=== PATIENT | male | born 1960 | race Caucasian/White ===

== ENCOUNTER 2018-08-31 07:30 | Inpatient (IN) | payer BC ==
--- NOTE | 2018-08-18 19:24 | HP ---
HISTORY AND PHYSICAL: DATE OF ADMISSION/SURGERY: 08/31/18 DATE OF OFFICE VISIT: 08/18/18 SURGEON: Radha Lebron MD * (DICTATED BY ANDREA FU) PROCEDURE: Left total hip arthroplasty. CHIEF COMPLAINT: Left hip pain. HISTORY OF PRESENT ILLNESS: Mr. Vazquez is a 58-year-old gentleman with end- stage osteoarthritis of the left hip. He has failed conservative treatment and elected to proceed with a left total hip arthroplasty. PAST MEDICAL HISTORY: Hypertension, high cholesterol, and sleep apnea. PAST SURGICAL HISTORY: Prostate biopsies and colonoscopies. CURRENT MEDICATIONS: 1. Omeprazole 40 mg a day. 2. Valsartan/hydrochlorothiazide 320/12.5 mg a day. 3. Aspirin 81 mg daily. 4. Cinnamon. 5. Magnesium. 6. Psyllium husk. 7. Turmeric. 8. Vitamin D3. 9. Inflamma-K. 10. ProbioMax. 11. CoQ10. 12. Garlic. ALLERGIES: None. FAMILY HISTORY: Coronary artery disease and cancer. SOCIAL HISTORY: He is a 58-year-old gentleman, lives with his . He does not smoke or use drugs. Uses occasional alcohol. REVIEW OF SYSTEMS: A complete 14-point review of systems was reviewed with the patient. It was positive for GERD. He denies history of DVT, PE, hepatitis, HIV , or anesthesia problems. PHYSICAL EXAMINATION GENERAL: He is well developed, well nourished, in no acute distress. VITAL SIGNS: He stands 70 inches tall, weighs 210 pounds. His blood pressure is 114/76 and his heart rate is 72. HEENT: Normocephalic, atraumatic. NECK: Supple. No palpable lymph nodes. PULMONARY: The lungs are clear to auscultation bilaterally. CARDIO: Regular rate and rhythm. Strong S1, S2. ABDOMEN: Soft, nontender, nondistended. NEUROLOGICAL: He is alert and oriented x3. MUSCULOSKELETAL: Left lower extremity: The skin is intact. There are no open wounds or abrasions. He walks with an antalgic-type gait favoring his left hip. He has decreased internal and external rotation of the left hip. He has a 2+ dorsalis pedis pulse. Intact sensation. His lower extremity muscle group strengths are intact at 5/5. ASSESSMENT AND PLAN: Mr. Vazquez is a 58-year-old gentleman with end-stage osteoarthritis of the left hip. He has failed conservative treatment and elected to proceed with a left total hip arthroplasty. Surgery is scheduled for 08/31/[address] Lebron discussed the risks and benefits of the surgery at today's visit and all of his questions were answered. He will follow up with Dr. Lebron 2 weeks after the surgery. ANDREA FU [id number]/[facility] #: [id number] MTDLeonard
[~2018-08-31 07:30] MED LIST: Buffered Lidocaine 1% SYRIN* 1 ML/SYRINGE INTRADERM ONE; Dexamethasone TAB* 4 MG PO ONE; DiMENhydriNATE IV* 50 MG/ML VIAL IV PUSH PRN; Famotidine IV* 10 MG/ML 2 ML (20 mg) IV ONE; Morphine VIAL* 4 MG/ML VIAL (1 ml vial) IV PRN; Naloxone* 0.4 MG/ML 1 ML VIAL IV PRN; Ondansetron TAB* 4 MG PO ONE; PROCHLORPERAZINE INJ 5 MG/ML 2 ML VIAL IV PRN; oxyCODONE/Acetamin 5/325 MG* TAB PO PRN
[2018-08-31] MEDS ORDERED: Gabapentin CAP(*) 300 MG PO ONE (09:00)
--- OUTSIDE RECORDS SUMMARY | 2018-08-31 09:10 | XMS REPORT | Continuity of Care Document ---
:1960 External Reference #:[id number] Author Name Shanthi Mello Care Team Providers Name Role Phone Nicolas Johnson DO Primary Care Physician Unavailable Payers Date Identification Numbers Payment Provider Subscriber Policy Number: [id number] [employer] Callum Vazquez PayID: [id number] [address] [address] [place] [address] Advance Directives Description No Information Available Problems Date Description Provider Status Onset: 07/12/2018 Localized, primary osteoarthritis of the Radha Pravin Lebron Active pelvic region and thigh Family History Description No Information Available Social History Type Date Description Comments Sex Unknown Lives With Spouse Occupation regional owner operator truck driver ETOH Use Currently consumes alcohol Tobacco Use Start: Unknown End: Patient is a former smoker Unknown Smoking Status Reviewed: 08/18/18 Patient is a former smoker Exercise Type/Frequency Exercises regularly Allergies, Adverse Reactions, Alerts Description No Known Drug Allergies Medications Medication Date Status Form Strength Qnty SIG Indications Ordering Provider Esomeprazole Active Capsules 40mg Johnson, Magnesium 000 DR Nicolas DO Valsartan-[place] Active Tablets 320-12.5mg Johnson, chlorothiazide 000 DO Nicolas Aspirin 81 Low Active Chewtabs 81mg 1 by Unknown Dose 000 mouth every day Cinnamon Active Capsules 500mg 2 tabs by Unknown 000 mouth every day Magnesium Active Capsules 100mg 1 by Unknown 000 mouth every day Psyllium Husk Active Powder 100% Unknown 000 Tumric Active tumeric Unknown 000 daily Vitamin D3 Active Liquid 1200Unit/1 Unknown 000 5ML Inflamma-K Active Kit 1.5&3.1-6- Unknown 000 10% Probiomax Daily Active Capsules Unknown DF 000 Co Q-10 Active Capsules 100mg Unknown 000 Garlic Active Tablets 100mg 1 by Unknown 000 mouth every day Immunizations Description No Information Available Vital Signs Date Vital Result Comment 08/18/2018 1:22pm Height 70.5 inches 5'10.50" Weight 210.00 lb BP Systolic 119 mmHg BP Diastolic 76 mmHg Respiratory Rate 16 /min Pain Level 6 BMI (Body Mass Index) 29.7 kg/m2 07/24/2018 3:03pm Height 70.5 inches 5'10.50" Heart Rate 75 /min BP Systolic 140 mmHg BP Diastolic 80 mmHg Respiratory Rate 18 /min Body Temperature 97.8 F Pain Level 7 07/12/2018 11:44am Height 70.5 inches 5'10.50" Weight 208.00 lb BP Systolic 129 mmHg BP Diastolic 82 mmHg Respiratory Rate 18 /min Pain Level 8 BMI (Body Mass Index) 29.4 kg/m2 Results Description No Information Available Procedures Description No Information Available Encounters Type Date Location Provider Dx Diagnosis Office Visit 07/24/2018 [facility] Lebron M25.562 Pain in left knee 2:[facility] M25.552 Pain in left hip M16.12 Unilateral primary osteoarthritis, left hip Office Visit 07/12/2018 10:45a [facility] Radha Lebron M25.562 Pain in left Of [facility] knee M25.552 Pain in left hip M16.12 Unilateral primary osteoarthritis, left hip Plan of Treatment Future Appointment(s):09/11/2018 8:45 am - Radha Lebron M.D. at [facility].A.08/31/2018 10:00 am - LEISA Santoro at [facility].A.08/31/2018 10:00 am - ANDREA Tan at [facility].A.08/31/2018 10:00 am - Radha Lebron M.D. at [facility].A.08/18/2018 - Radha Lebron M.D.M25.552 Pain in left hipFollow up:Follow up: 2 weeks after idxueunM38.12 Unilateral primary osteoarthritis, left hip
--- OUTSIDE RECORDS SUMMARY | 2018-08-31 09:10 | XMS REPORT | Continuity of Care Document ---
:1960 External Reference #:[id number] Author Name Nelia Brothers PA Address [address] [place] [address] Care Team Providers Name Role Phone Nicolas Johnson DO Care Team Information [employer] Unavailable Payers Type Date Identification Numbers Payment Provider Subscriber Effective: Policy Number: [id number] [facility] Commercial Callum Vazquez 2014 PayID: [id number] [address] [address] [place] [address] Advance Directives Description No Information Available Problems Date Description Provider Status Onset: 12/21/2013 Vitamin D deficiency Ar Plasencia DO Active Onset: 12/06/2011 Obstructive sleep apnea syndrome Ar Plasencia DO Active Onset: 12/06/2011 Pure hyperglyceridemia Ar Plasencia DO Active Onset: 12/06/2011 Gastroesophageal reflux disease Ar Plasencia DO Active Onset: 12/06/2011 Benign essential hypertension Ar Plasencia DO Active Onset: 07/19/2014 Pure hypercholesterolemia Ar Plasencia DO Active Onset: 07/19/2014 Sleep apnea Ar Plasencia DO Active Onset: 02/19/2016 Family history of malignant neoplasm of Ar Plasencia DO Active gastrointestinal tract Family History Description No Information Available Social History Type Date Description Comments Sex Unknown Marital Status 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 Dx: g47.33 Valsartan-Hydr 04/15/ Active Tablets 320-12.5mg 90tabs Take 1 I10 Alex ochlorothiazid 2014 Tablet Nicolas, e Daily DO Aspirin Adult 12/05/ Active Tablets 81mg 1 po qd I10 Luis Angel, Low Strength 2011 DO Ar Esomeprazole 12/05/ Active Capsules 40mg 90caps Take 1 K21.9 Alex Magnesium 2011 Capsule Nicolas, Daily DO Co-Enzyme Q-10 / Active Capsules 120mg 2 tabs Unknown 0000 oncea day Cinnamon / Active Capsules 500mg 2 by mouth Unknown 0000 every day Vitamin D / Active Capsules [id number] take 1 E55.9 Unknown (Ergocalcifero 0000 capsule by l) mouth every week on Tuesday Magnesium / Active Tablets 500mg 1 by mouth Unknown 0000 every other day Garlic / Active Capsules 500mg 1 cap po Unknown 0000 daily Tumeric 00/ Active 1 po daily Unknown 0000 Probiotic / Active Capsules 1 by mouth Unknown 0000 every day Rosuvastatin 02/21/ Hx Tablets 5mg 90tabs 1 by mouth E78.00 Luis Angel, Calcium 2016 - every day Ar, 2016 Atorvastatin 07/19/ Hx Tablets 40mg 90tabs Take 1 E78.00 Luis Angel, Calcium 2014 - Tablet Ar, 02/21/ Daily DO 2016 Naproxen 08/15/ Hx Tablets 550mg 60tabs Take 1 Luis Angel, Sodium 2013 - Tablet By Ar, 07/19/ Mouth DO 2014 Twice A Day With Food Glucosamine 06/22/ Hx Capsules 1500Com 2 po qd Luis Angel, Chondroitin 2012 - Tori Joyner Complex 2017 Fenofibric 12/15/ Hx Capsules 135mg 90caps 1 po qd Luis Angel, Acid 2012 - DR Joyner, 2014 [facility] Vitamin D 06/19/ Hx Capsules 2000Unit 100cap 1 po q E55.9 Luis Angel, 2011 - s week Ar, 2016 Diovan HCT 12/05/ Hx Tablets 320-12.5 90Tabs 1 by mouth Digiovanna 2011 - every day , Collin, 2014 Milk Thistle 12/05/ Hx Capsules 150mg 1PO qd Luis Angel, 2011 - Ar, 2016 Vitamin C / Hx Capsules 500mg 120cap 1 by mouth Unknown 0000 - s every day 2016 Tumeric / Hx 2000mg 1 tab Unknown 0000 - daily 2017 Arianna / Hx Capsules 500mg 1 tab Unknown 0000 - daily 2016 Arianna / Hx Capsules 3000mg 1 by mouth Unknown 0000 - every day 2017 Fiber Complete / Hx Tablets 1 by mouth Unknown 0000 - every day 2017 Feverfew / Hx Capsules 380mg 2 po daily Unknown 0000 - 2017 Medications Administered in Office Medication Date Status Form Strength Qnty SIG Indications Ordering Provider Depo Medrol 80 Administered Injection Luis Angel, MG 016 DO Ar Immunizations CPT Code Status Date Vaccine Lot # [id number] Given 08/01/2018 Tdap (Adacel) Ages 7 And Above Only [id number] Vital Signs Date Vital Result Comment 08/01/2018 10:10am Weight 211.00 lb Heart Rate 73 /min BP Systolic 130 mmHg BP Diastolic 82 mmHg Respiratory Rate 16 /min Height 69.75 inches 5'9.75" (08/2017) O2 % BldC Oximetry 94 % Ra BMI (Body Mass Index) 30.5 kg/m2 03/03/2018 8:08am Weight 206.00 lb Heart Rate 80 /min BP Systolic 116 mmHg BP Diastolic 78 mmHg Respiratory Rate 16 /min Height 69.75 inches 5'9.75" (08/2017) BMI (Body Mass Index) 29.8 kg/m2 08/26/2017 2:11pm Weight 206.00 lb Heart Rate 64 /min BP Systolic 136 mmHg BP Diastolic 88 mmHg Respiratory Rate 17 /min Height 69.75 inches 5'9.75" (08/2017) BMI (Body Mass Index) 29.8 kg/m2 04/29/2017 8:12am Weight 216.00 lb Heart Rate 68 /min BP Systolic 150 mmHg BP Diastolic 80 mmHg Respiratory Rate 18 /min Height 69.75 inches 5'9.75" (08/23/16) BMI (Body Mass Index) 31.2 kg/m2 02/21/2017 1:11pm Weight 215.56 lb Heart Rate 80 /min 80 Reg BP Systolic 124 mmHg BP Diastolic 80 mmHg BP Systolic Recheck 124 mmHg BP Diastolic Recheck 80 mmHg Respiratory Rate 16 /min Height 69.75 inches 5'9.75" (08/23/16) BMI (Body Mass Index) 31.1 kg/m2 11/09/2016 3:56pm Body Temperature 97.9 F Weight 216.50 lb Heart Rate 76 /min BP Systolic 126 mmHg BP Diastolic 80 mmHg Respiratory Rate 16 /min Height 69.75 inches 5'9.75" (08/23/16) BMI (Body Mass Index) 31.3 kg/m2 08/23/2016 1:12pm Weight 216.00 lb Heart Rate 72 /min 72 Reg BP Systolic 130 mmHg BP Diastolic 82 mmHg BP Systolic Recheck 116 mmHg BP Diastolic Recheck 74 mmHg Respiratory Rate 18 /min Height 69.75 inches 5'9.75" (08/23/16) BMI (Body Mass Index) 31.2 kg/m2 02/19/2016 1:00pm Weight 218.00 lb Heart Rate 72 /min 72 Reg BP Systolic 140 mmHg BP Diastolic 80 mmHg BP Systolic Recheck 130 mmHg BP Diastolic Recheck 80 mmHg Respiratory Rate 18 /min Height 70.25 inches 5'10.25" BMI (Body Mass Index) 31.1 kg/m2 08/14/2015 1:09pm Weight 220.00 lb Heart Rate 72 /min 72 Reg BP Systolic 152 mmHg BP Diastolic 82 mmHg BP Systolic Recheck 130 mmHg BP Diastolic Recheck 80 mmHg Respiratory Rate 18 /min Height 70.25 inches 5'10.25" BMI (Body Mass Index) 31.3 kg/m2 02/04/2015 1:52pm Weight 224.00 lb Heart Rate 66 /min 72 Reg BP Systolic 152 mmHg BP Diastolic 98 mmHg BP Systolic Recheck 150 mmHg Both Arms BP Diastolic Recheck 96 mmHg Both Arms Respiratory Rate 18 /min Height 70.25 inches 5'10.25" BMI (Body Mass Index) 31.9 kg/m2 07/19/2014 8:31am Weight 234.00 lb Heart Rate 72 /min 64 Reg BP Systolic 140 mmHg BP Diastolic 80 mmHg BP Systolic Recheck 140 mmHg BP Diastolic Recheck 90 mmHg Respiratory Rate 18 /min Height 70.25 inches 5'10.25" BMI (Body Mass Index) 33.3 kg/m2 12/21/2013 3:15pm BP Systolic 120 mmHg BP Diastolic 76 mmHg 12/21/2013 3:15pm Weight 221.00 lb Heart Rate 72 /min 72 Reg BP Systolic 118 mmHg BP Diastolic 72 mmHg Respiratory Rate 18 /min Height 70.25 inches 5'10.25" 09/28/2013 1:16pm Weight 235.00 lb Heart Rate 72 /min BP Systolic 140 mmHg BP Diastolic 88 mmHg Respiratory Rate 18 /min 08/15/2013 9:05am Weight 229.00 lb Heart Rate 72 /min Reg BP Systolic 130 mmHg BP Diastolic 80 mmHg 06/22/2013 3:10pm BP Systolic 124 mmHg BP Diastolic 80 mmHg 06/22/2013 3:10pm Weight 234.00 lb Heart Rate 84 /min 80 Reg BP Systolic 124 mmHg BP Diastolic 80 mmHg Respiratory Rate 18 /min 12/15/2012 3:03pm BP Systolic 110 mmHg BP Diastolic 74 mmHg 12/15/2012 3:03pm Weight 222.00 lb Heart Rate 60 /min 72 Reg BP Systolic 140 mmHg BP Diastolic 80 mmHg Respiratory Rate 18 /min 06/19/2012 2:44pm BP Systolic 130 mmHg BP Diastolic 80 mmHg 06/19/2012 2:44pm Weight 234.00 lb Heart Rate 66 /min 72 Reg BP Systolic 136 mmHg BP Diastolic 80 mmHg Respiratory Rate 18 /min 12/06/2011 8:57am BP Systolic 110 mmHg BP Diastolic 74 mmHg 12/06/2011 8:57am Weight 228.00 lb Heart Rate 72 /min BP Systolic 120 mmHg BP Diastolic 80 mmHg Respiratory Rate 24 /min Height 70.25 inches 5'10.25" Results Test Date Facility Test Result H/L Range Note CBC With Auto Diff 02/23/2018 [facility] W[facility] 5.8 K/uL 4.1-11.0 RBC 4.72 M/uL 4.60-6.10 Hemoglobin 15.5 gm/dL 13.5-18.0 Hematocrit 44.5 % 41.0-53.0 MCV 94.3 fL 80.0-97.0 MCH 32.8 pg High 27.0-32.0 MCHC 34.8 g/dL 32.0-36.0 RDW 12.8 % 11.5-14.5 PLT Count 175 K/ul 140-400 MPV 7.3 FL 7.1-10.7 Neutrophil 68.3 % 35.0-75.0 Lymphocyte 16.9 % 16.0-52.0 Monocyte 10.4 % High 2.0-10.0 Eosinophil 3.4 % 0.0-5.0 Basophil 1.0 % 0.0-4.0 Abs Neutrophils 4.0 K/uL 2.1-8.0 Abs Lymphocytes 1.0 K/uL 0.8-5.5 Abs Monocytes 0.6 K/uL 0.1-1.0 Abs Eosinophils 0.2 K/uL 0.0-0.5 Abs Basophils 0.1 K/uL 0.0-0.3 Basic (BMP) 02/23/2018 [facility] Sodium 142 mmol/L 135-146 1 Potassium 4.3 mmol/L 3.5-5.2 Chloride# 103 mmol/L 97-110 2 Carbon Dioxide 29 mmol/L 24-34 Glucose 107 mg/dL High 70-105 BUN 15 mg/dL 6-26 Creatinine 0.9 mg/dL 0.5-1.4 Calcium 9.8 mg/dL 8.5-10.2 Non Deidre Egfr >60 >60 3 Deidre Egfr >60 >60 4 Anion Gap 10 mmol/L 5-15 5 Laboratory test finding [facility]2018 [facility] TSH 1.84 uIU/mL 0.35-4.94 Lipid Treatment 02/23/2018 [facility] Cholesterol 218 mg/dL High 50-199 Triglycerides 117 mg/dL 30-200 HDL 48 mg/dL 29-71 6 Chol/ HDL Ratio 4.5 ratio 4.0-6.7 VLDL 23 mg/dL 2-29 LDL (Calc) 146 mg/dL High 20-99 7 Alt 17 U/L 3-42 Ast 14 U/L 8-42 Laboratory test finding 02/23/2018 [facility] Vitamin D 25 Hydroxy 64 ng/mL 30-100 8 Magnesium 2.0 mg/dL 1.5-2.7 Hemoglobin A1c 02/23/2018 [facility] Hemoglobin A1c 5.1 % 4.1-5.9 Estimated Average Glucose Calc 100 mg/dL 71-140 PSA Total And Free -RL 08/19/2017 [facility] PSA Total 0.8 ng/mL (0.0-4.0) 9 PSA Free 0.1 ng/mL PSA % Free 13 % 10 CBC With Auto Diff 08/19/2017 [facility] WBC 4.6 K/uL 4.1-11.0 11 RBC 4.49 M/uL Low 4.60-6.10 Hemoglobin 14.4 gm/dL 13.5-18.0 Hematocrit 40.8 % Low 41.0-53.0 MCV 90.9 fL 80.0-97.0 MCH 32.0 pg 27.0-32.0 MCHC 35.3 g/dL 32.0-36.0 RDW 13.2 % 11.5-14.5 PLT Count 174 K/ul 140-400 MPV 7.4 FL 7.1-10.7 Neutrophil 66.0 % 35.0-75.0 Lymphocyte 22.1 % 16.0-52.0 Monocyte 8.8 % 2.0-10.0 Eosinophil 2.6 % 0.0-5.0 Basophil 0.5 % 0.0-4.0 Abs Neutrophils 3.1 K/uL 2.1-8.0 Abs Lymphocytes 1.0 K/uL 0.8-5.5 Abs Monocytes 0.4 K/uL 0.1-1.0 Abs Eosinophils 0.1 K/uL 0.0-0.5 Abs Basophils 0.0 K/uL 0.0-0.3 Basic (BMP) 08/19/2017 [facility] Sodium 142 mmol/L 135-146 12 Potassium 3.9 mmol/L 3.5-5.2 Chloride# 104 mmol/L 97-110 13 Carbon Dioxide 30 mmol/L 24-34 Glucose 113 mg/dL High 70-105 BUN 18 mg/dL 6-26 Creatinine 0.9 mg/dL 0.5-1.4 Calcium 9.8 mg/dL 8.5-10.2 Non Deidre Egfr >60 >60 14 Deidre Egfr >60 >60 15 Anion Gap 8 mmol/L 5-15 16 Lipid Treatment 08/19/2017 [facility] Cholesterol 198 mg/dL 50-199 Triglycerides 122 mg/dL 30-200 HDL 44 mg/dL 29-71 17 Chol/ HDL Ratio 4.5 ratio 4.0-6.7 VLDL 24 mg/dL 2-29 LDL (Calc) 130 mg/dL High 20-99 18 Alt 35 U/L 3-42 Ast 15 U/L 8-42 Laboratory test finding 08/19/2017 [facility] Vitamin D 25 Hydroxy 28 ng/mL Low 30-100 19 Magnesium 2.1 mg/dL 1.5-2.7 Hemoglobin A1c 08/19/2017 [facility] Hemoglobin A1c 5.2 % 4.1-5.9 Estimated Average Glucose Calc 103 mg/dL 71-140 Laboratory test finding 04/29/2017 [facility] Esr 3 mm/hr 0-15 20 CRP (C-Reactive) 0.03 mg/dL 0.00-0.75 Rheumatoid Factor <10.0 IU/mL 0.0-10.0 Yoly Screen With Reflex-FCMG 04/29/2017 [facility] Yoly Screen NEGATIVE dsDNA IgG 3.50 0.00-9.00 21 Laboratory test finding 04/29/2017 [facility] Ferritin 94.7 ng/ml 24.0- 336.0 Iron, Total 127 g/dL 65-175 Uric Acid 6.1 mg/dL 2.6-8.4 CBC With Auto Diff 02/14/2017 [facility] WBC 5.2 K/uL 4.1-11.0 22 RBC 4.78 M/uL 4.60-6.10 Hemoglobin 15.4 gm/dL 13.5-18.0 Hematocrit 43.9 % 41.0-53.0 MCV 91.9 fL 80.0-97.0 MCH 32.2 pg High 27.0-32.0 MCHC 35.1 g/dL 32.0-36.0 RDW 13.7 % 11.5-14.5 PLT Count 180 K/ul 140-400 Neutrophil 63.2 % 35.0-75.0 Lymphocyte 24.3 % 16.0-52.0 Monocyte 9.0 % 2.0-10.0 Eosinophil 2.9 % 0.0-5.0 Basophil 0.6 % 0.0-4.0 Abs Neutrophils 3.3 K/uL 2.1-8.0 Abs Lymphocytes 1.3 K/uL 0.8-5.5 Abs Monocytes 0.5 K/uL 0.1-1.0 Abs Eosinophils 0.1 K/uL 0.0-0.5 Abs Basophils 0.0 K/uL 0.0-0.3 Basic (BMP) 02/14/2017 [facility] Sodium 142 mmol/L 135-146 23 Potassium 4.2 mmol/L 3.5-5.2 Chloride# 106 mmol/L 97-110 24 Carbon Dioxide 24 mmol/L 24-34 Glucose 105 mg/dL 70-105 BUN 17 mg/dL 6-26 Creatinine 0.8 mg/dL 0.5-1.4 Calcium 9.6 mg/dL 8.5-10.2 Non Deidre Egfr >60 >60 25 Deidre Egfr >60 >60 26 Anion Gap 12 mmol/L 7-16 27 Lipid Treatment 02/14/2017 [facility] Cholesterol 235 mg/dL High 50-199 Triglycerides 230 mg/dL High 30-150 HDL 54 mg/dL 40-71 28 Chol/ HDL Ratio 4.4 ratio 4.0-6.7 VLDL 46 mg/dL High 2-29 LDL (Calc) 135 mg/dL High 20-129 29 Alt 17 U/L 3-42 Ast 14 U/L 8-42 Laboratory test finding 02/14/2017 [facility] Vit D25oh 40 ng/mL 31-100 Magnesium 2.1 mg/dL 1.5-2.7 Hemoglobin A1c 02/14/2017 [facility] Hemoglobin A1c 5.5 % 4.1-6.5 Estimated Average Glucose Calc 111 71-140 Laboratory test finding 11/10/2016 [facility] CPK 90 U/L 12-199 30 Esr 2 mm/hr 0-15 CRP (C-Reactive) 0.03 mg/dL 0.00-0.75 Rheumatoid Factor <10.0 IU/mL 0.0-10.0 Yoly Screen With Reflex-FCMG 11/10/2016 [facility] Yoly Screen NEGATIVE dsDNA IgG NEGATIVE CBC With Auto Diff 11/10/2016 [facility] WBC 5.9 K/uL 4.1-11.0 RBC 4.78 M/uL 4.60-6.10 Hemoglobin 14.6 gm/dL 13.5-18.0 Hematocrit 44.1 % 41.0-53.0 MCV 92.4 fL 80.0-97.0 MCH 30.6 pg 27.0-32.0 MCHC 33.2 g/dL 32.0-36.0 RDW 13.0 % 11.5-14.5 PLT Count 183 K/ul 140-400 Neutrophil 64.8 % 35.0-75.0 Lymphocyte 22.9 % 16.0-52.0 Monocyte 8.1 % 2.0-10.0 Eosinophil 3.6 % 0.0-5.0 Basophil 0.6 % 0.0-4.0 Abs Neutrophils 3.8 K/uL 2.1-8.0 Abs Lymphocytes 1.4 K/uL 0.8-5.5 Abs Monocytes 0.5 K/uL 0.1-1.0 Abs Eosinophils 0.2 K/uL 0.0-0.5 Abs Basophils 0.0 K/uL 0.0-0.3 Lyme Igm/Igg AB -RL 11/10/2016 [facility] Lyme Igm/Igg AB @ NEGATIVE (Neg) 31 CBC With Auto Diff 08/17/2016 [facility] WBC 7.2 K/uL 4.1-11.0 32 RBC 4.79 M/uL 4.60-6.10 Hemoglobin 15.1 gm/dL 13.5-18.0 Hematocrit 43.3 % 41.0-53.0 MCV 90.3 fL 80.0-97.0 MCH 31.5 pg 27.0-32.0 MCHC 34.9 g/dL 32.0-36.0 RDW 12.7 % 11.5-14.5 PLT Count 190 K/ul 140-400 Neutrophil 71.3 % 35.0-75.0 Lymphocyte 16.6 % 16.0-52.0 Monocyte 7.3 % 2.0-10.0 Eosinophil 4.0 % 0.0-5.0 Basophil 0.8 % 0.0-4.0 Abs Neutrophils 5.2 K/uL 2.1-8.0 Abs Lymphocytes 1.2 K/uL 0.8-5.5 Abs Monocytes 0.5 K/uL 0.1-1.0 Abs Eosinophils 0.3 K/uL 0.0-0.5 Abs Basophils 0.1 K/uL 0.0-0.3 Basic (BMP) 08/17/2016 [facility] Sodium 140 mmol/L 134-142 Potassium 4.2 mmol/L 3.5-5.2 Chloride 105 mmol/L 97-109 Carbon Dioxide 25 mmol/L 24- Glucose 114 mg/dL High 70-105 BUN 17 mg/dL 6- Creatinine 0.8 mg/dL 0.5-1.4 Calcium 10.0 mg/dL 8.5-10.2 Anion Gap 14 mmol/L - Non Deidre Egfr >60 >60 33 Deidre Egfr >60 >60 34 Lipid Treatment 08/17/2016 [facility] Cholesterol 152 mg/dL 50-199 Triglycerides 90 mg/dL 30-150 HDL 54 mg/dL 40-71 35 Chol/ HDL Ratio 2.8 ratio Low 4.0-6.7 VLDL 18 mg/dL 2-29 LDL (Calc) 80 mg/dL 20-99 36 Alt 21 U/L 3-42 Ast 14 U/L 8-42 Laboratory test finding 08/17/2016 [facility] Vit D,25 Hydroxy 41 ng/mL 31- 100 Magnesium 2.0 mg/dL 1.5-2.7 Laboratory test finding 07/30/2016 [facility] BUN 17 mg/ dL N 7-18 37 (315)- - Creatinine 0.9 mg/dL N 0.6-1.3 Lyme Igm/Igg AB -RL 06/02/2016 [facility] Lyme Igm/Igg AB @ NEGATIVE (Neg) 38, 39 CBC With Auto Diff 02/12/2016 [facility] WBC 4.5 K/uL 4.1-11.0 40 RBC 4.74 M/uL 4.60-6.10 Hemoglobin 15.2 gm/dL 13.5-18.0 Hematocrit 43.2 % 41.0-53.0 MCV 91.1 fL 80.0-97.0 MCH 32.0 pg 27.0-32.0 MCHC 35.2 g/dL 32.0-36.0 RDW 12.8 % 11.5-14.5 PLT Count 177 K/ul 140-400 Neutrophil 58.8 % 35.0-75.0 Lymphocyte 28.4 % 16.0-52.0 Monocyte 7.9 % 2.0-10.0 Eosinophil 4.3 % 0.0-5.0 Basophil 0.6 % 0.0-4.0 Abs Neutrophils 2.7 K/uL 2.1-8.0 Abs Lymphocytes 1.3 K/uL 0.8-5.5 Abs Monocytes 0.4 K/uL 0.1-1.0 Abs Eosinophils 0.2 K/uL 0.0-0.5 Abs Basophils 0.0 K/uL 0.0-0.3 Basic (BMP) 02/12/2016 [facility] Sodium 140 mmol/L 134-142 Potassium 4.1 mmol/L 3.5-5.2 Chloride 105 mmol/L 97-109 Carbon Dioxide 25 mmol/L 24-34 Glucose 97 mg/dL 70-105 BUN 17 mg/dL 6-26 Creatinine 0.9 mg/dL 0.5-1.4 Calcium 9.7 mg/dL 8.5-10.2 Anion Gap 14 mmol/L 6-14 Non Deidre Egfr >60 >60 41 Deidre Egfr >60 >60 42 Lipid Treatment 02/12/2016 [facility] Cholesterol 179 mg/dL 50-199 Triglycerides 249 mg/dL High 30-150 HDL 47 mg/dL 40-71 43 Chol/ HDL Ratio 3.8 ratio Low 4.0-6.7 VLDL 50 mg/dL High 2-29 LDL (Calc) 82 mg/dL 20-99 44 Alt 20 U/L 3-42 Ast 14 U/L 8-42 Laboratory test finding 02/12/2016 [facility] Vit D,25 Hydroxy 35 ng/mL 31- 100 Magnesium 2.0 mg/dL 1.5-2.7 Basic (BMP) 08/07/2015 [facility] Sodium 140 mmol/L 134-142 45 Potassium 4.6 mmol/L 3.5-5.2 Chloride 103 mmol/L 97-109 Carbon Dioxide 29 mmol/L 24-34 Glucose 100 mg/dL 70-105 BUN 17 mg/dL 6-26 Creatinine 0.9 mg/dL 0.5-1.4 Calcium 9.7 mg/dL 8.5-10.2 Anion Gap 13 mmol/L 6-14 Non Deidre Egfr >60 >60 46 Deidre Egfr >60 >60 47 CBC With Auto Diff 08/07/2015 [facility] WBC 6.2 K/uL 4.1-11.0 RBC 4.72 M/uL 4.60-6.10 Hemoglobin 14.8 gm/dL 13.5-18.0 Hematocrit 43.4 % 41.0-53.0 MCV 92.0 fL 80.0-97.0 MCH 31.5 pg 27.0-32.0 MCHC 34.2 g/dL 32.0-36.0 RDW 12.9 % 11.5-14.5 PLT Count 188 K/ul 140-400 Neutrophil 63.5 % 35.0-75.0 Lymphocyte 23.4 % 16.0-52.0 Monocyte 9.0 % 2.0-10.0 Eosinophil 3.5 % 0.0-5.0 Basophil 0.6 % 0.0-4.0 Abs Neutrophils 4.0 K/uL 2.1-8.0 Abs Lymphocytes 1.5 K/uL 0.8-5.5 Abmon 0.6 K/uL 0.1-1.0 Abs Eosinophils 0.2 K/uL 0.0-0.5 Abs Basophils 0.0 K/uL 0.0-0.3 Lipid Treatment 08/07/2015 [facility] Cholesterol 160 mg/dL 50-199 Triglycerides 210 mg/dL High 30-150 HDL 46 mg/dL 40-71 48 Chol/ HDL Ratio 3.5 ratio Low 4.0-6.7 VLDL 42 mg/dL High 2-29 LDL (Calc) 72 mg/dL 20-99 49 Alt 22 U/L 3-42 Ast 15 U/L 8-42 Laboratory test finding 08/07/2015 [facility] Vit D,25 Hydroxy 73 ng/mL 31- 100 Basic (BMP) 01/09/2015 [facility] Sodium 140 mmol/L 134-142 50 Potassium 4.6 mmol/L 3.5-5.2 Chloride 106 mmol/L 97-109 Carbon Dioxide 26 mmol/L 24-34 Glucose 109 mg/dL High 70-105 BUN 14 mg/dL 6-26 Creatinine 0.9 mg/dL 0.5-1.4 Calcium 9.6 mg/dL 8.5-10.2 Anion Gap 13 mmol/L 6-14 Non Deidre Egfr >60 >60 51 Deidre Egfr >60 >60 52 CBC With Auto Diff 01/09/2015 [facility] WBC 5.8 K/uL 4.1-11.0 RBC 5.03 M/uL 4.60-6.10 Hemoglobin 16.5 gm/dL 13.5-18.0 Hematocrit 47.3 % 41.0-53.0 MCV 94.0 fL 80.0-97.0 MCH 32.7 pg High 27.0-32.0 MCHC 34.8 g/dL 32.0-36.0 RDW 13.1 % 11.5-14.5 PLT Count Platelets clumpe <SEE NOTE> K/ul 140-400 53 Neutrophil 61.3 % 35.0-75.0 Lymphocyte 24.5 % 16.0-52.0 Monocyte 7.9 % 2.0-10.0 Eosinophil 5.7 % High 0.0-5.0 Basophil 0.6 % 0.0-4.0 Abs Neutrophils 3.5 K/uL 2.1-8.0 Abs Lymphocytes 1.4 K/uL 0.8-5.5 Abmon 0.5 K/uL 0.1-1.0 Abs Eosinophils 0.3 K/uL 0.0-0.5 Abs Basophils 0.0 K/uL 0.0-0.3 Laboratory test finding 01/09/2015 [facility] Vit D,25 Hydroxy 52 ng/mL 31- 100 Lipid Treatment 01/09/2015 [facility] Cholesterol 241 mg/dL High 50-199 Triglycerides 160 mg/dL High 30-150 HDL 51 mg/dL 40-71 54 Chol/ HDL Ratio 4.7 ratio 4.0-6.7 VLDL 32 mg/dL High 2-29 LDL (Calc) 158 mg/dL High 20-129 55 Alt 21 U/L 3-42 Ast 20 U/L 8-42 Lipid Panel 06/17/2014 [facility] Chol/HDL Ratio 4.6 ratio Cholesterol 226.0 mg/dL High 50.0-199.0 HDL 49.0 mg/dL 40.0-67.0 LDL, Calculated 141.8 mg/dL High 20.0-129.0 Triglycerides 176.0 mg/dL High 30.0-150.0 vLDL 35.2 ng/dL Laboratory test finding 06/17/2014 N2N/[facility] Import % Baso. 0.8 % 0.0-2.0 % Eos. 4.2 % High 0.0-4.0 % Lymph 24 % 20-44 % Ceiba 8.4 % 2.0-10.0 % Mary 63 % 50-70 Absolute Baso. 0.0 K/ul 0.0-0.3 Absolute Eos. 0.2 K/ul 0.0-0.5 Absolute Lymph. 1.3 K/ul 0.8-4.8 Absolute Ceiba. 0.4 K/ul 0.1-1.0 Absolute Mary. 3.34 K/ul 2.05-7.63 Alt 24.0 U/L 21.0-72.0 Ast 20.0 U/L 17.0-59.0 BUN 18.0 mg/dL 9.0-21.0 BUN/Creat Ratio 18.0 ratio 12.0-20.0 Calcium 10.0 mg/dL 8.7-10.5 Chloride 106.0 mmol/L 98.0-107.0 Co2 24.0 mmol/L 22.0-30.0 Creatinine-Serum 1.0 mg/dL 0.8-1.5 Glucose 105.0 mg/dL 75.0-110.0 HCT 41.8 % 37.0-51.0 HGB 14.7 Gm/dl 12.0-16.0 MCH 31.7 pg 26.0-32.0 MCHC 35.1 g/dL 31.0-36.0 MCV 90.4 Fl 80.0-97.0 MPV 6.4 fL 6.0-10.0 PLT 210 K/ul 140-440 Potasium 4.2 mmol/L 3.6-5.0 RBC 4.6 M/ul 4.2-6.3 RDW 11.5 % 11.5-14.5 Sodium 143.0 mmil/L 137.0-145.0 Vitamin D 31.7 ng/mL 30.0-96.0 WBC 5.3 K/ul 4.1-10.9 eGFR 83.1 Laboratory test finding 12/14/2013 N2N/[facility] Import % Baso. 1.1 % 0.0-2.0 % Eos. 5.3 % High 0.0-4.0 % Lymph 25 % 20-44 % Ceiba 8.4 % 2.0-10.0 % Mary 60 % 50-70 Absolute Baso. 0.1 K/ul 0.0-0.3 Absolute Eos. 0.3 K/ul 0.0-0.5 Absolute Lymph. 1.3 K/ul 0.8-4.8 Absolute Ceiba. 0.4 K/ul 0.1-1.0 Absolute Mary. 3.12 K/ul 2.05-7.63 Alt 21.0 U/L 21.0-72.0 Ast 16.0 U/L Low 17.0-59.0 BUN 19.0 mg/dL 9.0-21.0 BUN/Creat Ratio 21.1 ratio High 12.0-20.0 Calcium 10.0 mg/dL 8.7-10.5 Chloride 104.0 mmol/L 98.0-107.0 Co2 27.0 mmol/L 22.0-30.0 Creatinine-Serum 0.9 mg/dL 0.8-1.5 Glucose 104.0 mg/dL 75.0-110.0 HCT 41.7 % 37.0-51.0 HGB 14.8 Gm/dl 12.0-16.0 MCH 32.1 pg High 26.0-32.0 MCHC 35.6 g/dL 31.0-36.0 MCV 90.4 Fl 80.0-97.0 MPV 6.3 fL 6.0-10.0 PLT 221 K/ul 140-440 Potasium 4.5 mmol/L 3.6-5.0 RBC 4.6 M/ul 4.2-6.3 RDW 11.8 % 11.5-14.5 Sodium 141.0 mmil/L 137.0-145.0 Vitamin D 36.4 ng/mL 30.0-100.0 WBC 5.2 K/ul 4.1-10.9 eGFR 94.2 Lipid Panel 12/14/2013 N2N/CCD Import Chol/HDL Ratio 4.7 ratio Cholesterol 239.0 mg/dL High 50.0-199.0 HDL 51.0 mg/dL 40.0-67.0 LDL, Calculated 155.2 mg/dL High 20.0-129.0 Triglycerides 164.0 mg/dL High 30.0-150.0 vLDL 32.8 ng/dL Laboratory test finding 06/15/2013 N2N/CCD Import % Baso. 1.2 % 0.0-2.0 % Eos. 4.0 % 0.0-4.0 % Lymph 28 % 20-44 % Ceiba 9.3 % 2.0-10.0 % Mary 57 % 50-70 Absolute Baso. 0.1 K/ul 0.0-0.3 Absolute Eos. 0.2 K/ul 0.0-0.5 Absolute Lymph. 1.5 K/ul 0.8-4.8 Absolute [place]iba. 0.5 K/ul 0.1-1.0 Absolute Mary. 3.07 K/ul 2.05-7.63 Alt 21.0 U/L 21.0-72.0 Ast 18.0 U/L 17.0-59.0 BUN 17.0 mg/dL 9.0-21.0 BUN/Creat Ratio 15.5 ratio 12.0-20.0 Calcium 10.3 mg/dL 8.7-10.5 Chloride 103.0 mmol/L 98.0-107.0 Co2 27.0 mmol/L 22.0-30.0 Creatinine-Serum 1.1 mg/dL 0.8-1.5 Glucose 104.0 mg/dL 75.0-110.0 HCT 44.1 % 37.0-51.0 HGB 16.0 Gm/dl 12.0-16.0 MCH 33.2 pg High 26.0-32.0 MCHC 36.4 g/dL High 31.0-36.0 MCV 91.2 Fl 80.0-97.0 MPV 5.9 fL Low 6.0-10.0 PLT 211 K/ul 140-440 PSA 1.1 ng/mL 0.0-4.0 Potasium 4.0 mmol/L 3.6-5.0 RBC 4.8 M/ul 4.2-6.3 RDW 11.5 % 11.5-14.5 Sodium 140.0 mmil/L 137.0-145.0 Vitamin D 35.7 ng/mL 30.0-100.0 WBC 5.4 K/ul 4.1-10.9 eGFR 74.7 Lipid Panel 06/15/2013 N2N/CCD Import Chol/HDL Ratio 5.0 ratio Cholesterol 253.0 mg/dL High 50.0-199.0 HDL 51.0 mg/dL 40.0-67.0 LDL, Calculated 154.2 mg/dL High 20.0-129.0 Triglycerides 239.0 mg/dL High 30.0-150.0 vLDL 47.8 ng/dL Laboratory test finding 12/07/2012 N2N/CCD Import Alt 26.0 U/L 21.0- 72.0 Ast 19.0 U/L 17.0-59.0 BUN 19.0 mg/dL 9.0-21.0 BUN/Creat Ratio 19.0 ratio 12.0-20.0 Calcium 10.3 mg/dL 8.7-10.5 Chloride 105.0 mmol/L 98.0-107.0 Co2 24.0 mmol/L 22.0-30.0 Creatinine-Serum 1.0 mg/dL 0.8-1.5 Glucose 98.0 mg/dL 75.0-110.0 Potasium 4.4 mmol/L 3.6-5.0 Sodium 143.0 mmil/L 137.0-145.0 Vitamin D 67.2 ng/mL 30.0-100.0 eGFR 83.7 Lipid Panel 12/07/2012 N2N/CCD Import Chol/HDL Ratio 4.9 ratio Cholesterol 217.0 mg/dL High 50.0-199.0 HDL 44.0 mg/dL 40.0-67.0 LDL, Calculated 132.0 mg/dL High 20.0-129.0 Triglycerides 205.0 mg/dL High 30.0-150.0 vLDL 41.0 ng/dL Laboratory test 12/07/2012 N2N/CCD Import Magnesium 1.9 mg/dL 1.7-2.3 56 finding Laboratory test 05/29/2012 N2N/CCD Import Absolute 0.040 K/ul 0.0-0.3 57 finding Basophils Absolute Eosinophils 0.266 K/ul 0.0-0.5 Absolute Lymphocytes 1.40 K/ul 0.8-4.8 Absolute Monocytes 0.365 K/ul 0.1-1.0 Absolute Neutrophils 2.59 K/ul 2.05-7.63 Alt 41 U/L 21-72 Anion Gap 17 mmol/L 10-20 Antinuclear Abs Ifa Negative . 58 Ast 25 U/L 17-59 BUN 17 mg/dL 9-21 BUN/CR Ratio 19.1 Ratio 12-20 Basophil 0.9 % 0-2 C-Reactive Protein,Quant < 2.9 mg/L 0.0-4.9 59 Calcium 9.8 mg/dL 8.7-10.5 Carbon Dioxide 27 mmol/L 22-30 Chloride 104 mmol/L 98-107 Creatinine, Serum 0.9 mg/dL 0.8-1.5 Eosinophil 5.7 % High 0-4 Esr (Sed Rate/Westergren) 3 SEC 0-20 Glucose 97 mg/dL 75-110 Hematocrit 41.8 % 37.0-51.0 Hemoglobin 15.3 GM/dl 12.0-16.0 Lymphocytes 30.0 % 20-44 MCH 32.8 pg High 26.0-32.0 MCHC 36.6 g/dL High 31.0-36.0 MCV 90 FL 80-97 Monocytes 7.8 % 2-10.0 Neutrophils 55.6 % 50-70 Platelet Count 210 K/ul 140-440 Potassium 4.0 mmol/L 3.6-5.0 RBC 4.67 M/ul 4.2-6.3 RDW 10.8 % Low 11.5-14.5 Rheumatoid Factor Screen Negative Negative 60 Sodium 144 mmol/L 137-145 Vitamin D,25-Hydroxy 19.1 ng/mL Low 30.0-100.0 61 WBC 4.7 K/ul 4.1-10.9 Lipid Panel 05/29/2012 N2N/CCD Import Chol/HDL Ratio 4.7 62 Cholesterol 232 mg/dL High 50-199 HDL Cholesterol 49 mg/dL 40-67 LDL 122 mg/dL 20-129 Triglycerides 303 mg/dL High 30-150 VLDL Cholesterol 61 mg/dL 1 Updated reference range on new analyzer 2 Updated reference range on new analyzer 3 Concerning GFR Guidelines: Normal function or mild renal disease, if clinically at risk: >/=60 mL/min Moderately decreased: 30-59 Severely decreased: 15-29 Renal failure: <15 Glomerular Filtration Rate (GFR) is estimated based on the MDRD equation, which assumes a steady state for creatinine as recommended by the National Kidney Disease Education Program in conjunction with the National Institutes of Health and the National Kidney Foundation. Clinical conditions in which it may be necessary to measure GFR by using clearance methods include extremes of age and body size, severe malnutrition or obesity, diseases of skeletal muscle, paraplegia or quadriplegia, vegetarian diet, rapidly changing kidney function, and calculation of the dose of potentially toxic drugs that are excreted by the kidneys. 4 Concerning GFR Guidelines for Americans: Normal function or mild renal disease, if clinically at risk: >/=60 mL/min Moderately decreased: 30-59 Severely decreased: 15-29 Renal failure: <15 5 Updated Reference Range 6 Per NCEP ATP III Guidelines: Results lower than 40 mg/dL are suggestive of increased risk for coronary artery disease. Results > or=to 60 mg/dL are considered a negative risk factor. 7 Per NCEP ATP III Guidelines: Normal Population <130 Patients with medical conditions: CHD/DM Optimal: <100 Borderline high: 130-159 High: 160-189 Very high: >189 8 Clinical Guidelines for recommended serum 25(OH)Vitamin D Deficient at less than 20 ng/mL Insufficient at 20 to <30 ng/mL Sufficient at 30-100 ng/mL Toxicity at greater than 100 ng/mL 9 faxed to Wyatt Diaz 08/22/17 by [facility] 10 % FREE PSA PROBABILITY OF CANCER 0 - 10% 56% 10 - 15% 28% 15 - 20% 20% 20 - 25% 16% GREATER THAN 25% 8% THE FREE PSA PERCENTAGE IS AN AID IN DISTINGUISHING PROSTATE CANCER FROM BENIGN PROSTATIC CONDITIONS IN MEN AGE 50 AND OLDER WITH A TOTAL PSA BETWEEN 3 AND 10 NG/ML AND NEGATIVE DIGITAL RECTAL EXAMINATION FINDINGS. PROSTATIC BIOPSY IS REQUIRED FOR THE DIAGNOSIS OF CANCER. (See: LEATHA 1998; 279: 3800-9246) METHOD USED TO ASSAY BOTH FREE PSA AND TOTAL PSA IS DOROTHY ACCESS/DXI (CHEMILUMINESCENCE IMMUNOASSAY, HYBRITECH CALIBRATION). RESULTS SHOULD NOT BE INTERPRETED ABSOLUTE EVIDENCE FOR THE PRESENCE OR ABSENCE OF MALIGNANT DISEASE. VALUES OBTAINED WITH DIFFERENT ASSAY METHODS OR KITS CANNOT BE USED INTERCHANGEABLY. Unless otherwise specified, testing performed by [facility] [address] [place] [address] 11 SCHEDULE 1 WEEK PRIOR TO NEXT VISIT 12 Updated reference range on new analyzer 13 Updated reference range on new analyzer 14 Concerning GFR Guidelines: Normal function or mild renal disease, if clinically at risk: >/=60 mL/min Moderately decreased: 30-59 Severely decreased: 15-29 Renal failure: <15 Glomerular Filtration Rate (GFR) is estimated based on the MDRD equation, which assumes a steady state for creatinine as recommended by the National Kidney Disease Education Program in conjunction with the National Institutes of Health and the National Kidney Foundation. Clinical conditions in which it may be necessary to measure GFR by using clearance methods include extremes of age and body size, severe malnutrition or obesity, diseases of skeletal muscle, paraplegia or quadriplegia, vegetarian diet, rapidly changing kidney function, and calculation of the dose of potentially toxic drugs that are excreted by the kidneys. 15 Concerning GFR Guidelines for Americans: Normal function or mild renal disease, if clinically at risk: >/=60 mL/min Moderately decreased: 30-59 Severely decreased: 15-29 Renal failure: <15 16 Updated Reference Range 17 Per NCEP ATP III Guidelines: Results lower than 40 mg/dL are suggestive of increased risk for coronary artery disease. Results > or=to 60 mg/dL are considered a negative risk factor. 18 Per NCEP ATP III Guidelines: Normal Population <130 Patients with medical conditions: CHD/DM Optimal: <100 Borderline high: 130-159 High: 160-189 Very high: >189 19 Clinical Guidelines for recommended serum 25(OH)Vitamin D Deficient at less than 20 ng/mL Insufficient at 20 to <30 ng/mL Sufficient at 30-100 ng/mL Toxicity at greater than 100 ng/mL 20 today 21 Interpretation: <0.8 -9 Negative 10-15 Equivocal >15.0 Positive 22 SCHEDULE 1 WEEK PRIOR TO NEXT VISIT 23 Updated reference range on new analyzer 24 Updated reference range on new analyzer 25 Concerning GFR Guidelines: Normal function or mild renal disease, if clinically at risk: >/=60 mL/min Moderately decreased: 30-59 Severely decreased: 15-29 Renal failure: <15 Glomerular Filtration Rate (GFR) is estimated based on the MDRD equation, which assumes a steady state for creatinine as recommended by the National Kidney Disease Education Program in conjunction with the National Institutes of Health and the National Kidney Foundation. Clinical conditions in which it may be necessary to measure GFR by using clearance methods include extremes of age and body size, severe malnutrition or obesity, diseases of skeletal muscle, paraplegia or quadriplegia, vegetarian diet, rapidly changing kidney function, and calculation of the dose of potentially toxic drugs that are excreted by the kidneys. 26 Concerning GFR Guidelines for Americans: Normal function or mild renal disease, if clinically at risk: >/=60 mL/min Moderately decreased: 30-59 Severely decreased: 15-29 Renal failure: <15 27 Updated reference range on new analyzer 28 Per NCEP ATP III Guidelines: Results lower than 40 mg/dL are suggestive of increased risk for coronary artery disease. Results > or=to 60 mg/dL are considered a negative risk factor. 29 Per NCEP ATP III Guidelines: Normal Population <130 Patients with medical conditions: CHD/DM Optimal: <100 Borderline high: 130-159 High: 160-189 Very high: >189 30 TODAY 31 A Negative serologic test for Lyme Disease indicates no serologic evidence of infection with B burgdorferi at the time this specimen was collected. A repeat specimen should be collected in 2 to 4 weeks if clinically indicated. Unless otherwise specified, testing performed by [facility] [address] [place] [id number] 32 SCHEDULE 1 WEEK PRIOR TO NEXT VISIT 33 Concerning GFR Guidelines: Normal function or mild renal disease, if clinically at risk: >/=60 mL/min Moderately decreased: 30-59 Severely decreased: 15-29 Renal failure: <15 Glomerular Filtration Rate (GFR) is estimated based on the MDRD equation, which assumes a steady state for creatinine as recommended by the National Kidney Disease Education Program in conjunction with the National Institutes of Health and the National Kidney Foundation. Clinical conditions in which it may be necessary to measure GFR by using clearance methods include extremes of age and body size, severe malnutrition or obesity, diseases of skeletal muscle, paraplegia or quadriplegia, vegetarian diet, rapidly changing kidney function, and calculation of the dose of potentially toxic drugs that are excreted by the kidneys. 34 Concerning GFR Guidelines for Americans: Normal function or mild renal disease, if clinically at risk: >/=60 mL/min Moderately decreased: 30-59 Severely decreased: 15-29 Renal failure: <15 35 Per NCEP ATP III Guidelines: Results lower than 40 mg/dL are suggestive of increased risk for coronary artery disease. Results > or=to 60 mg/dL are considered a negative risk factor. 36 Per NCEP ATP III Guidelines: Normal Population <130 Patients with medical conditions: CHD/DM Optimal: <100 Borderline high: 130-159 High: 160-189 Very high: >189 37 R31.1 38 Fastin hours 39 A Negative serologic test for Lyme Disease indicates no serologic evidence of infection with B burgdorferi at the time this specimen was collected. A repeat specimen should be collected in 2 to 4 weeks if clinically indicated. Unless otherwise specified, testing performed by [facility] [address] [place] [id number] 40 SCHEDULE 1 WEEK PRIOR TO NEXT VISIT 41 Concerning GFR Guidelines: Normal function or mild renal disease, if clinically at risk: >/=60 mL/min Moderately decreased: 30-59 Severely decreased: 15-29 Renal failure: <15 Glomerular Filtration Rate (GFR) is estimated based on the MDRD equation, which assumes a steady state for creatinine as recommended by the National Kidney Disease Education Program in conjunction with the National Institutes of Health and the National Kidney Foundation. Clinical conditions in which it may be necessary to measure GFR by using clearance methods include extremes of age and body size, severe malnutrition or obesity, diseases of skeletal muscle, paraplegia or quadriplegia, vegetarian diet, rapidly changing kidney function, and calculation of the dose of potentially toxic drugs that are excreted by the kidneys. 42 Concerning GFR Guidelines for Americans: Normal function or mild renal disease, if clinically at risk: >/=60 mL/min Moderately decreased: 30-59 Severely decreased: 15-29 Renal failure: <15 43 Per NCEP ATP III Guidelines: Results lower than 40 mg/dL are suggestive of increased risk for coronary artery disease. Results > or=to 60 mg/dL are considered a negative risk factor. 44 Per NCEP ATP III Guidelines: Normal Population <130 Patients with medical conditions: CHD/DM Optimal: <100 Borderline high: 130-159 High: 160-189 Very high: >189 45 SCHEDULE 1 WEEK PRIOR TO NEXT VISIT Fastin hours SCHEDULE 1 WEEK PRIOR TO NEXT VISIT Fastin hours SCHEDULE 1 WEEK PRIOR TO NEXT VISIT Fastin hours SCHEDULE 1 WEEK PRIOR TO NEXT VISIT Fastin hours 46 Concerning GFR Guidelines: Normal function or mild renal disease, if clinically at risk: >/=60 mL/min Moderately decreased: 30-59 Severely decreased: 15-29 Renal failure: <15 Glomerular Filtration Rate (GFR) is estimated based on the MDRD equation, which assumes a steady state for creatinine as recommended by the National Kidney Disease Education Program in conjunction with the National Institutes of Health and the National Kidney Foundation. Clinical conditions in which it may be necessary to measure GFR by using clearance methods include extremes of age and body size, severe malnutrition or obesity, diseases of skeletal muscle, paraplegia or quadriplegia, vegetarian diet, rapidly changing kidney function, and calculation of the dose of potentially toxic drugs that are excreted by the kidneys. 47 Concerning GFR Guidelines for Americans: Normal function or mild renal disease, if clinically at risk: >/=60 mL/min Moderately decreased: 30-59 Severely decreased: 15-29 Renal failure: <15 48 Per NCEP ATP III Guidelines: Results lower than 40 mg/dL are suggestive of increased risk for coronary artery disease. Results > or=to 60 mg/dL are considered a negative risk factor. 49 Per NCEP ATP III Guidelines: Normal Population <130 Patients with medical conditions: CHD/DM Optimal: <100 Borderline high: 130-159 High: 160-189 Very high: >189 50 SCHEDULE 1 WEEK PRIOR TO NEXT VISIT 51 Concerning GFR Guidelines: Normal function or mild renal disease, if clinically at risk: >/=60 mL/min Moderately decreased: 30-59 Severely decreased: 15-29 Renal failure: <15 Glomerular Filtration Rate (GFR) is estimated based on the MDRD equation, which assumes a steady state for creatinine as recommended by the National Kidney Disease Education Program in conjunction with the National Institutes of Health and the National Kidney Foundation. Clinical conditions in which it may be necessary to measure GFR by using clearance methods include extremes of age and body size, severe malnutrition or obesity, diseases of skeletal muscle, paraplegia or quadriplegia, vegetarian diet, rapidly changing kidney function, and calculation of the dose of potentially toxic drugs that are excreted by the kidneys. 52 Concerning GFR Guidelines for Americans: Normal function or mild renal disease, if clinically at risk: >/=60 mL/min Moderately decreased: 30-59 Severely decreased: 15-29 Renal failure: <15 53 Platelets clumped but appear normal in number. 54 Per NCEP ATP III Guidelines: Results lower than 40 mg/dL are suggestive of increased risk for coronary artery disease. Results > or=to 60 mg/dL are considered a negative risk factor. 55 Per NCEP ATP III Guidelines: Normal Population <130 Patients with medical conditions: CHD/DM Optimal: <100 Borderline high: 130-159 High: 160-189 Very high: >189 56 FASTING SCHEDULE 1 WEEK PRIOR TO NEXT VISIT 57 FASTING SCHEDULE 1 WEEK PRIOR TO NEXT VISIT 58 Negative <1:80 Borderline 1:80 Positive >1:80 Performed at: RN - [facility] [address] [id number] Line Install[employer] T[employer]ley: Anel Kinsey MD, Phone: [phone] FASTING SCHEDULE 1 WEEK PRIOR TO NEXT VISIT 60 FASTING SCHEDULE 1 WEEK PRIOR TO NEXT VISIT 61 Vitamin D deficiency has been defined by the [place] of Medicine and an Endocrine Society practice guideline as a level of serum 25-OH vitamin D less than 20 ng/mL (1,2). The Endocrine Society went on to further define vitamin D insufficiency as a level between 21 and 29 ng/mL (2). 1. IOM ([place] of Medicine). 2010. Dietary reference intakes for calcium and D. [place]: The National Academies Press. 2. Silvio MF, Tracie [place], Graciela VERDUZCO, et al. Evaluation, treatment, and prevention of vitamin D deficiency: an Endocrine Society clinical practice guideline. JCEM. 2010; 96(7):1911-30. Performed at: RN - [facility] [address] [id number] Line Install[employer] Trolley: Anel Kinsey MD, Phone: [phone] Normal Range: Male: <4.98 Female: <4.45 Procedures Date Code Description Status 08/01/2018 51751 Electrocardiogram Complete Completed 04/29/2017 94529 X-Ray Knee 1-2 Views Bilateral Completed 04/29/2017 66528 Radiologic Exam Hips Bilateral Completed 02/19/2016 23417 Inject/Drain Joint/Bursa Major W/Out Ultrasound Completed Guidance 11/28/2015 [id number] Colonoscopy Completed 12/06/2011 39405 Electrocardiogram Complete Completed 57545 Colonoscopy Flexible Diagnostic Completed Encounters Type Date Location Provider Dx Diagnosis Office Visit 03/03/2018 [facility] Nicolas Johnson DO I10 Essential (primary) 8:00a hypertension E55.9 Vitamin D deficiency, unspecified K21.9 Gastro-esophageal reflux disease without esophagitis R73.09 Other abnormal glucose M25.562 Pain in LEFT knee M16.0 Bilateral primary osteoarthritis of hip E78.2 Mixed hyperlipidemia G47.33 Obstructive sleep apnea (adult) (pediatric) Z80.0 Family history of malignant neoplasm of digestive organs Z12.5 Encounter for screening for malignant neoplasm of prostate Z68.29 Body mass index (BMI) 29.0-29.9, adult Office Visit 08/26/2017 2:00p [facility] Nicolas Johnson DO I10 Essential ( primary) hypertension E55.9 Vitamin D deficiency, unspecified K21.9 Gastro-esophageal reflux disease without esophagitis R73.09 Other abnormal glucose M25.562 Pain in LEFT knee M16.0 Bilateral primary osteoarthritis of hip E78.2 Mixed hyperlipidemia G47.33 Obstructive sleep apnea (adult) (pediatric) Z80.0 Family history of malignant neoplasm of digestive organs Office Visit 04/29/2017 8:15a [facility] Ar Plasencia DO M25.569 Pain in unspecified knee M25.559 Pain in unspecified hip Office Visit 02/21/2017 1:15p [facility] Ar Plasencia DO I10 Essential ( primary) hypertension E55.9 Vitamin D deficiency, unspecified K21.9 Gastro-esophageal reflux disease without esophagitis R73.09 Other abnormal glucose E78.00 Pure hypercholesterolemia, unspecified G47.33 Obstructive sleep apnea (adult) (pediatric) Z80.0 Family history of malignant neoplasm of digestive organs Office Visit 11/09/2016 4:00p [facility] Ar Plasencia DO M79.1 Myalgia M25.50 Pain in unspecified joint Office Visit 08/23/2016 1:15p [facility] Ar Plasencia DO I10 Essential ( primary) hypertension E78.00 Pure hypercholesterolemia, unspecified E55.9 Vitamin D deficiency, unspecified K21.9 Gastro-esophageal reflux disease without esophagitis G47.33 Obstructive sleep apnea (adult) (pediatric) Z80.0 Family history of malignant neoplasm of digestive organs R73.09 Other abnormal glucose Office Visit 02/19/2016 1:00p [facility] Ar Plasencia, M17.12 Unilateral primary DO osteoarthritis, LEFT knee I10 Essential (primary) hypertension E78.0 Pure hypercholesterolemia K21.9 Gastro-esophageal reflux disease without esophagitis G47.33 Obstructive sleep apnea (adult) (pediatric) E55.9 Vitamin D deficiency, unspecified Z80.0 Family history of malignant neoplasm of digestive organs Office Visit 08/14/2015 1:00p [facility] Ar Plasencia DO I10 Essential ( primary) hypertension E78.0 Pure hypercholesterolemia E55.9 Vitamin D deficiency, unspecified K21.9 Gastro-esophageal reflux disease without esophagitis G47.33 Obstructive sleep apnea (adult) (pediatric) Z80.0 Family history of malignant neoplasm of digestive organs R04.0 Epistaxis K62.5 Hemorrhage of anus and rectum Office Visit 02/04/2015 1:45p [facility] Ar Plasencia DO 401.1 Hypertension Benign 272.0 Hypercholesterolemia Pure 268.9 Vitamin D Deficiency Unspec 530.81 Esophageal Reflux 327.23 Apnea, Obstructive Sleep Apnea Adult & Pediatric Office Visit 07/19/2014 8:30a [facility] Ar Plasencia DO 401.1 Hypertension Benign 272.0 Hypercholesterolemia Pure 530.81 Esophageal Reflux 268.9 Vitamin D Deficiency Unspec 327.23 Apnea, Obstructive Sleep Apnea Adult & Pediatric Plan of Treatment Future Appointment(s):09/07/2018 8:00 am - Nicolas Johnson DO at [facility]08/31/2018 8:10 am - Schedule, Laboratory at [facility]08/01/2018 - Nelia Brothers PAZ01.818 Encounter for other preprocedural examinationComments:Pt scheduled for L total hip replacement with Dr. Cedeno appears stable for proposed surgeryFollow up: PrnM25.552 Pain in LEFT hipComments:Scheduled for L total hip replacement with Dr. LebronM16.12 Unilateral primary osteoarthritis, LEFT hipComments:Scheduled for L total hip replacement with Dr. LebronI10 Essential (primary) hypertensionComments:Continue current medicationHold aspirin 1 week prior to [id number] Encounter for [id number] Body mass index (BMI) 30.0-30.9, adult
[2018-08-31] MEDS ORDERED: Gabapentin CAP(*) 300 MG ONE (09:30)
[2018-08-31] MEDS ORDERED: Famotidine IV* 10 MG/ML 2 ML (20 mg) ONE (09:30)
[2018-08-31] MEDS ORDERED: Ondansetron ODT TAB* 4 MG ONE (09:30)
[2018-08-31] MEDS ORDERED: Dexamethasone TAB* 4 MG ONE (09:31)
[2018-08-31] MEDS ORDERED: ceFAZolin 2 GM PREMIX in ORs 2 GM/50 ML BAG IVPB ONE (09:31)
[2018-08-31] MEDS: Lactated Ringers 1000 ML Bag* 1,000 ML IV SCH ×4 (09:39→22:14)
[2018-08-31] MEDS ORDERED: KETAMINE HCL* 50 MG/ML 10 ML VIAL ONE (10:00)
[2018-08-31] MEDS ORDERED: fentaNYL* 50 MCG/ML 2 ML VIAL (100 MCG VIAL) ONE ×3 (10:00→14:58)
[2018-08-31] MEDS ORDERED: Midazolam* 1 MG/ML 5 ML VIAL (5 MG) ONE (10:01)
[2018-08-31] MEDS ORDERED: Atracurium* 10 MG/ML 10 ML VIAL ONE (10:27)
[2018-08-31] MEDS ORDERED: ROPIVACAINE 5 MG/ML 30 ML BTL (0.5%) ONE (11:02)
[2018-08-31] MEDS ORDERED: Morphine VIAL* 10 MG/ML 1 ML VIAL ONE (12:46)
[2018-08-31] MEDS ORDERED: Ketorolac INJ* 30 MG/ML 1 ML VIAL ONE (14:05)
[2018-08-31] MEDS ORDERED: Lidocaine 2% PF * 5 ML VIAL ONE (14:05)
[2018-08-31] MEDS ORDERED: PROCHLORPERAZINE INJ 5 MG/ML 2 ML VIAL ONE (14:05)
[2018-08-31] MEDS ORDERED: Propofol* 10 MG/ML 20 ML BTL ONE ×2 (14:05→14:43)
[2018-08-31] MEDS ORDERED: Ondansetron INJ* 2 MG/ML VIAL IV PRN (14:50)
[2018-08-31] MEDS ORDERED: Morphine VIAL* 4 MG/ML VIAL (1 ml vial) IV PRN (14:50)
[2018-08-31] MEDS ORDERED: Magnesium Hydroxide LIQ* 30 ML UDC PO PRN (14:50)
[2018-08-31] MEDS ORDERED: diPHENhydraMINE IV* 50 MG/ML 1 ml VIAL (BENADRYL) IV PRN (14:50)
[2018-08-31] MEDS ORDERED: traMADol TAB* 50 MG PO PRN (14:50)
[2018-08-31] MEDS ORDERED: Polyethylene Glycol 3350* 17 GM PACKET PO PRN (14:50)
[2018-08-31] MEDS ORDERED: oxyCODONE TAB* 5 MG TAB PO PRN (14:50)
[2018-08-31] MEDS ORDERED: diPHENhydraMINE PO* 25 MG PO PRN (14:50)
[2018-08-31] MEDS ORDERED: Bisacodyl SUPP* 10 MG SUPP PR PRN (14:50)
[2018-08-31] MEDS ORDERED: Cyclobenzaprine TAB* 10 MG PO PRN (14:50)
[2018-08-31] MEDS ORDERED: Pantoprazole TAB * 40 MG TAB PO PRN (14:58)
[2018-08-31] MEDS ORDERED: oxyCODONE/Acetamin 5/325 MG* TAB PO PRN (15:01)
[2018-08-31] MEDS ORDERED: oxyCODONE/Acetamin 5/325 MG* TAB ONE (15:10)
[2018-08-31] MEDS: fentaNYL* 50 MCG/ML 2 ML VIAL (100 MCG VIAL) IV PRN ×2 (15:11→15:21)
[2018-08-31] MEDS: Acetaminophen TAB* 325 MG PO SCH (17:20)
--- NOTE | 2018-08-31 18:29 | CONS ---
CC: Dr. Radha Lebron; Dr. Nicolas Johnson * CONSULTATION REPORT: DATE OF CONSULT: 08/31/18 PRIMARY CARE PROVIDER: Dr. Nicolas Johnson. REQUESTING PHYSICIAN: Dr. Radha Lebron. ATTENDING PHYSICIAN: Dr. Nighat Ni (dictated by Betzaida Wiseman NP). REASON FOR CONSULT: Co-medical management. HISTORY OF PRESENT ILLNESS: I will refer you to ANDREA Small's history and physical for complete details, but in short, Mr. Vazquez is a 58-year-old male with past medical history of hypertension, hyperlipidemia and obstructive sleep apnea, who presents today for an elective left total hip arthroplasty. Reportedly, the patient has failed conservative treatment and elected to proceed with the surgery. 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 He has had hypertension dating back approximately 20 years and this has always been well managed on his current medications. He does not check his blood pressure at home, though reports that it is always under good control at appointments. On my exam postoperatively, the patient denies any pain, though he reports that he recently received pain medication. His only complaint is that he feels as though he is sitting in a "hole." He is anxious to return back to his usual activities and would like to get back to work as soon as possible. He denies any headache, dizziness, blurry vision, shortness of breath, or chest pain. PAST MEDICAL HISTORY: 1. Hypertension. 2. Hyperlipidemia. 3. Sleep apnea. PAST SURGICAL HISTORY: 1. Left total hip arthroplasty. HOME MEDICATIONS: 1. Aspirin 81 mg p.o. daily. 2. Esomeprazole 40 mg p.o. daily. 3. Probiotic 1 cap p.o. daily. 4. Valsartan/hydrochlorothiazide 320/12.5 one tab p.o. daily. 5. Cinnamon bark 500 mg p.o. daily. 6. Garlic 1000 mg p.o. daily. 7. Psyllium husk 800 mg p.o. daily. ALLERGIES: SULFA. FAMILY HISTORY: Positive for heart disease and cancer. The patient reports that his father from colon cancer. SOCIAL HISTORY: He denies any tobacco, alcohol, or recreational drug use. He works as a pharmacy delivery driver for [employer] and lives at home with his . His , Jacuqe will be his surrogate decision maker in the event he is unable to make his own decisions. REVIEW OF SYSTEMS: An 11-point review of systems was performed and all the pertinent positive and negative findings are in the HPI. All other systems are negative. PHYSICAL EXAM: Mr. Vazquez is a well-developed, well-nourished white male, sitting up in bed, in no acute distress. He appears his stated age. Vital Signs: Temp 97.2, heart rate 74, respiratory rate 17, oxygen saturation 96% on 3 L, blood pressure 107/76. HEENT: Visual newell are grossly intact. Pupils are equal, round, reactive to light and accommodation. Extraocular movements intact. Oral mucous membranes are moist and without lesions. Neck: Full range of motion. Trachea midline. Respiratory: Symmetrical chest expansion. No chest wall deformities. Lungs: Clear to auscultation throughout. No rhonchi, wheezes, or rubs. Cardiovascular: Regular rate and rhythm. S1, S2 present. No murmurs, rubs, or gallops. Extremities: Skin warm and smooth bilaterally. No edema. No clubbing or cyanosis. Pedal pulses 2+ bilaterally. Musculoskeletal: Full range of motion except for the left lower extremity, which was not tested. Abdomen: Soft, nontender to palpation. Bowel sounds normoactive throughout. Neuro: Awake, alert, and oriented x4. Cranial nerves II through XII grossly intact. Moves all extremities. Skin: Grossly intact except for a surgical dressing to the left hip. DIAGNOSTIC STUDIES/LAB DATA: The patient had lab work on 08/18/18 as follows: WBC 9.0, RBC 4.92, hemoglobin 15.4, hematocrit 45, platelets 209. Sodium 140, potassium 4.0, chloride 105, carbon dioxide 29, BUN 14, creatinine 0.87, glucose 97. Urinalysis unremarkable. ASSESSMENT AND PLAN: Mr. Vazquez is a 58-year-old male with history of hypertension and hyperlipidemia, who presented to [facility] today for an elective left total hip. The patient will be admitted inpatient for: 1. Left total hip arthroplasty. Management per Ortho. 2. Hypertension. The patient's hypertension is well controlled with his current medication regimen. He is normotensive in the PACU. We will restart his valsartan/hydrochlorothiazide in the morning and continue to monitor his vital signs. 3. Hyperlipidemia. The patient is not on medication and is diet controlled and we will defer further management to his PCP. 4. Code status: The patient will be a full code. 5. DVT prophylaxis: Per Ortho. Thank you for this consultation. We will continue to follow distantly. TIME SPENT: Approximately 50 minutes was spent on this consultation, greater than half of that time spent [id number] with the patient and his significant other obtaining my history, performing my physical exam, and reviewing the plan of care. This case has been reviewed with my attending, Dr. Ni; who is in agreement with the plan of care. BETZAIDA WISEMAN NP [id number]/CPS #: [id number] CANDIS
[2018-08-31] MEDS: ceFAZolin 1 GM ADVAN(*) 1 GM in NS 0.9% 50 ML* 50 ML IVPB SCH (20:24)
[2018-08-31] MEDS: oxyCODONE/Acetamin 5/325 MG* TAB PO PRN (22:47)
[2018-08-31] MEDS: Docusate CAP* 100 MG PO SCH (22:47)
[2018-08-31] MEDS: Magnesium Hydroxide LIQ* 30 ML UDC PO SCH (22:49)
--- NOTE | 2018-08-31 23:12 | OP ---
DATE OF OPERATION: 08/31/18 - ROOM #343 DATE OF : 62 SURGEON: Radha Lebron MD CROP PULLER: ANDREA Santoro. Ms. Thurman did help throughout the procedure with preparation of the leg, wound retraction, manipulation of the hip, and wound closure. ANESTHESIOLOGIST: Dr. Pierson. ANESTHESIA: General. PRE-OP DIAGNOSIS: Severe end-stage degenerative osteoarthritis of the left hip. POST-OP DIAGNOSIS: Severe end-stage degenerative osteoarthritis of the left hip. OPERATIVE PROCEDURE: Left total hip arthroplasty. INDICATIONS: Mr. Vazquez is a 58-year-old gentleman with years of increasingly severe left hip pain. Radiographs showed [id number]-xi-[id number] arthritis. Due to continued pain and decreased quality of life, he elected to undergo left total hip arthroplasty. Informed consent was obtained from the patient. The patient failed conservative treatment with anti-inflammatories, pain medication , physical therapy, and injections. Due to continued pain and decreased quality of life, he elected to undergo left total hip arthroplasty. Informed consent was obtained from the patient. He understood the risks of surgery included, but were not limited to, bleeding, infection, damage to nearby structures, continued pain, need for further surgery, intraoperative fracture, nerve palsy, hardware failure or loosening, dislocation, leg length discrepancy , stroke, heart attack, blood clot, and . He wished to proceed. COMPLICATIONS: None. ESTIMATED BLOOD LOSS: 200 cc. SPECIMEN: Femoral head and acetabular reaming sent to Pathology. HARDWARE USED: This is uncemented Josesito total hip arthroplasty hardware. For the cup, a Tritanium 54E cluster hole shell. Two screws were used; length 16 mm and 20 mm. For the liner, a polyethylene liner, Trident X3 36E. For the stem, an Accolade 2 size 6 with a 127-degree neck. For the head, a Biolox delta ceramic V40 femoral neck 36 +0. INTRAOPERATIVE FINDINGS: Intraoperatively, the patient was noted to have severe end-stage arthritis. Femoral head was deformed, the acetabular bone was deformed superiorly and posteriorly. He had a shallow acetabulum. There was extensive osteophyte formation around the femoral head and neck as well as the acetabulum. There was significant bone loss along the superolateral acetabulum. DESCRIPTION OF PROCEDURE: Mr. Vazquez was identified in the preanesthesia unit. His left lower extremity was marked as the correct operative side. Informed consent was signed and placed in the chart. The patient was taken to the operating room and placed under general anesthesia. A Navarro catheter was placed. The patient was placed in the right lateral decubitus position on the peg board. All bony prominences were well padded. Left lower extremity was prepped and draped in the usual sterile fashion. Preop timeout was made to correctly identify the patient's side and site. Appropriate perioperative antibiotics were given within 1 hour of incision. Posterior hip incision was made with a 10-blade and carried down to the lateral fascial layer. Lateral fascial layer was incised in line with skin incision. The piriformis and conjoint tendons were identified and elevated off the posterolateral femur using electrocautery. These were tagged with #5 Ethibond. Electrocautery was used to make a standard posterolateral capsular flap. This was also tagged with #5 Ethibond. The hip was carefully dislocated. Lesser troch to center of the femoral head measured 62 mm. Oscillating saw was used to make the appropriate femoral neck cut. Femoral head was removed. The femur was carefully retracted anteriorly. Long-handled knife was used to sharply remove any remaining labrum from the acetabular rim. The acetabulum was noted to be shallow and dysplastic. There was superolateral bone loss, which was extensive from chronic wear. The acetabulum was sequentially reamed up to a size 53. A 53 reamer developed a bleeding subchondral bone bed. A 53 trial had excellent fit and stability with some superolateral uncoverage, which was expected. The final implant chosen was a 54E Tritanium cluster hole shell. This was impacted into the acetabulum without difficulty. There was satisfactory abduction angle and anteversion. Two screws were placed in the superior posterior quadrant for extra stability. Liner chosen was a Trident X3 polyethylene liner, 36E. This was impacted into the femoral cup without difficulty. Stability of the liner was checked and rechecked and noted to be stable. Next, attention was turned to preparation of the femoral canal. A canal finder was used to enter the proximal femur. Proximal femur was sequentially broached up to a size 6. Size 6 broach had excellent fit and stability. A 127 neck trial and a 36 +0 head trial was chosen. Lesser troch to center of the femoral head measured 63 mm. The hip was reduced and taken through range of motion. The hips were stable in all positions. There was good soft tissue tension and appropriate leg lengths. The hip was dislocated. All trials removed. Final implant chosen was an Accolade 2, size 6 with a 127-degree neck angle. The stem was impacted into the femoral canal. A 36 +0 Biolox delta ceramic V40 femoral head was impacted onto the femoral neck. Lesser troch to center of the femoral head measurement was 63 mm. The hip was reduced and taken through a range of motion. The hip was stable in all positions. There was appropriate soft tissue tension and good leg lengths. The hip was copiously irrigated with sterile saline. Previously tagged tendons and capsule were reapproximated to the posterolateral femur through two trochanteric drill holes. Lateral fascial layer was closed using interrupted #1 Vicryls. The rest of the incision was closed in a layered fashion using 0 and 2-0 Vicryls. The skin was closed using running 3-0 Monocryl and Dermabond. Sterile Adaptic, 4x4s, and paper tape were used to cover the incision. The patient's anesthesia was reversed without difficulty and he was taken to the PACU in stable condition. Intended weightbearing will be weightbearing as tolerated. [id number]/[facility] #: [id number] CANDIS
[2018-09-01] MEDS: Acetaminophen TAB* 325 MG PO SCH ×2 (02:56→08:10)
[2018-09-01] MEDS: oxyCODONE/Acetamin 5/325 MG* TAB PO PRN ×3 (03:24→12:55)
[2018-09-01] MEDS: ceFAZolin 1 GM ADVAN(*) 1 GM in NS 0.9% 50 ML* 50 ML IVPB SCH ×2 (04:37→12:55)
[2018-09-01 04:58] LABS: Hematocrit 35 % (42-52); Hemoglobin 12.2 g/dl (14.0-18.0); Mean Platelet Volume 6.8 fL (7.4-10.4); Platelet Count 168 10^3/ul (150-450)
[2018-09-01 05:13] LABS: BUN/Creatinine Ratio 18.3 (8-20); Calcium 8.9 mg/dL (8.6-10.3); EGFR African American 117.2 (>60); EGFR Non-African American 96.8 (>60); Potassium 4.2 mmol/L (3.5-5.0)
[2018-09-01] MEDS: Docusate CAP* 100 MG PO SCH (07:59)
[2018-09-01] MEDS: Magnesium Hydroxide LIQ* 30 ML UDC PO SCH (08:02)
[2018-09-01 08:11] VITALS: BP 120/76
[2018-09-01] MEDS ORDERED: Apixaban* 2.5 MG TAB PO SCH (09:00)
[2018-09-01] MEDS ORDERED: Valsartan TAB* 160 MG PO SCH (09:00)
[2018-09-01] MEDS ORDERED: Hydrochlorothiazide TAB* 25 MG PO SCH (09:00)
--- NOTE | 2018-09-01 11:53 | PN ---
Progress Note - Progress Note Date of Service: 09/01/18 SOAP: Subjective: []Patient seen OOB in chair. He is doing very well. Denies SOB, CP, palpitations or dizziness. He walked around the unit this am with minimal pain. He would like to go home today after therapy this afternoon. Objective: [] Vital Signs Temp 97.9 F 09/01/18 07:55 Pulse 68 09/01/18 07:55 Resp 16 09/01/18 08:02 BP 120/76 09/01/18 07:55 Pulse Ox 97 09/01/18 07:55 Intake & Output 08/31/18 09/01/18 09/01/18 18:59 06:59 18:59 Intake Total 2120 1236 1392 Output Total 250 1700 Balance 1870 -464 1392 Weight 204 lb Intake: IV Fluids 1999 456 1017 ABX - CEFAZOLIN 55 LR 2000 401 1017 IVPB 55 ABX - CEFAZOLIN 55 Oral 120 780 320 Output: Navarro 250 1700 Laboratory Results - last 24 hr 09/01/18 09/01/18 04:40 04:40 Hgb 12.2 L Hct 35 L Plt Count 168 MPV 6.8 L Sodium 136 Potassium 4.2 Chloride 102 Carbon Dioxide 30 Anion Gap 4 BUN 15 Creatinine 0.82 Est GFR ( Amer) 117.2 Est GFR (Non-Af Amer) 96.8 BUN/Creatinine Ratio 18.3 Glucose 117 H Calcium 8.9 Left hip wound benign calf NT and soft active DF left ankle sensation and circulation intact distally Assessment: [] s/p LTH POD #1 Plan: []PT session this afternoon Home later today Lovenox 40 QD for DVT prophylaxis Follow up 10-[address] Lebron.
--- NOTE | 2018-09-01 20:19 | DS ---
DISCHARGE SUMMARY: DATE OF ADMISSION: 08/31/18 DATE OF DISCHARGE: 09/01/18 ATTENDING PHYSICIAN: Dr. Radha Lebron * (DICTATED BY ANDREA EVANS) ADMISSION DIAGNOSIS: Severe end-stage degenerative osteoarthritis or the left hip. DISCHARGE DIAGNOSES: Severe end-stage degenerative osteoarthritis or the left hip. SURGERY PERFORMED: Left total hip arthroplasty. HOSPITAL COURSE: The patient is a 58-year-old male with increasingly severe left hip pain. His plain films revealed skjy-la-darb osteoarthritis. He failed conservative management with anti-inflammatories, pain medication, physical therapy, and cortisone injections. He elected to proceed with surgical intervention. He was taken to the operating room under the care of Dr. Lebron on the date of 08/31/18. He tolerated the procedure well and left the operating room in stable condition. Postoperatively, he progressed satisfactorily with his physical therapy and occupational therapy goals bearing weight as tolerated on the left lower extremity. He had no postoperative complications and was stable medically and orthopedically for discharge to home on the afternoon of 09/01/18. CONDITION ON DISCHARGE: Reveals the temperature of 97.9, pulse 68, respiratory rate 16, O2 saturation 97% on room air, blood pressure 120/76. His left hip incision is healing without evidence of infection. His calf is soft and nontender. He has active dorsiflexion of he left ankle. His neurovascular status is intact distally. PLAN: Discharge to home 09/01/18. Unfortunately, his insurance will not cover Eliquis for postoperative DVT prophylaxis, therefore, he was prescribed Lovenox 40 mg subcu for an additional 29 days. He will continue with physical therapy exercise program and was also provided a prescription of Percocet 5/325 one to two tablets q.3 hours p.r.n. pain, #70, MDD 10. He will follow up with Dr. Lebron as scheduled in the office in 10 to 14 days. All questions were answered. ANDREA EVANS [id number]/[facility] #: [id number] [facility]
== END 2018-09-01 15:00 | disposition home health service (06) | DRG 301 ==
LOC: AA 09:05 → SSU 16:08
PROVIDERS: ADMIT Orthopaedic Surgery Adult Reconstructive Orthopaedic Surgery; ATTEND Orthopaedic Surgery Adult Reconstructive Orthopaedic Surgery
PROC: 0SRB04A Replacement of Left Hip Joint with Ceramic on Polyethylene Synthetic Substitute, Uncemented, Open Approach (ICD-10-PCS; principal; 2018-08-31 11:45)
DX: M16.12 Unilateral primary osteoarthritis, left hip (principal); I10 Essential (primary) hypertension; E78.5 Hyperlipidemia, unspecified; M25.752 Osteophyte, left hip; G47.33 Obstructive sleep apnea (adult) (pediatric); K21.9 Gastro-esophageal reflux disease without esophagitis; Z79.82 Long term (current) use of aspirin; Z79.899 Other long term (current) drug therapy; Z88.2 Allergy status to sulfonamides; Z82.49 Family history of ischemic heart disease and other diseases of the circulatory system; Z80.0 Family history of malignant neoplasm of digestive organs
CPT/HCPCS: 36415; 80048; 85014; 85018; 85049; A9270-GY; C1713; C1776; J0690; J0780; J1885; J2250; J2270; J2704; J2795; J3010; J8540

== ENCOUNTER 2019-07-26 05:33 | Day surgery (SDC) | payer BC ==
--- NOTE | 2019-07-18 11:18 | HP ---
DATE OF ADMISSION: 07/26/2019. DATE OF OFFICE VISIT: 07/16/2019. ATTENDING SURGEON: Dr. Radha Lebron * (dictated by ANDREA Small). PROCEDURE: Right knee arthroscopy with partial meniscectomy, possible chondroplasty, possible synovectomy, and possible plica incision. CHIEF COMPLAINT: Right knee pain. HISTORY OF PRESENT ILLNESS: Mr. Vazquez is a 59-year-old gentleman with complaints of right knee pain. An MRI confirms a meniscus tear. He has elected to proceed with a right knee arthroscopy. PAST MEDICAL HISTORY: Hypertension, high cholesterol, GERD, sleep apnea. PAST SURGICAL HISTORY: Left total hip arthroplasty and prostate biopsy. CURRENT MEDICATIONS: 1. Aspirin 81 mg a day. 2. CoQ10. 3. ProbioMax. 4. Vitamin B. 5. Turmeric. 6. Psyllium husk. 7. Magnesium. 8. Cinnamon. 9. Valsartan/Hydrochlorothiazide 320/12.5 mg a day. 10. Garlic. 11. Omeprazole 40 mg a day. ALLERGIES: No known drug allergies. FAMILY HISTORY: Family history of cancer and hypertension. SOCIAL HISTORY: He is a 59-year-old gentleman who lives with his . He does not smoke or use drugs. He reports a few alcoholic beverages per week. REVIEW OF SYSTEMS: A complete 14 point review of systems was reviewed with the patient and is positive for GERD. He denies a history of DVT, PE, hepatitis, HIV, or anesthesia problems. PHYSICAL EXAMINATION GENERAL: Well-developed, well-nourished, in no acute distress. VITAL SIGNS: He stands 70 inches tall, he weighs 214 pounds. Blood pressure 122/68, heart rate 74. HEENT: Normocephalic, atraumatic. NECK: Supple, no palpable lymph nodes. CARDIO: Regular rate and rhythm. Strong S1, S2. PULMONARY: The lungs are clear to auscultation bilaterally. ABDOMEN: Soft, nontender, nondistended. MUSCULOSKELETAL: Right lower extremity: The skin is intact. There are no open wounds or abrasions. There is a moderate effusion of the right knee joint. Range of motion is 5 to 120 degrees of flexion. Positive Branden's, positive Apley's, negative Zhen's. He has a 2+ dorsalis pedis pulse. He is able to dorsiflex and plantarflex. He has intact sensation. ASSESSMENT AND PLAN: Mr. Vazquez is a 59-year-old gentleman with right knee pain and MRI confirmed a meniscus tear. He has elected to proceed with a right knee arthroscopy with partial meniscectomy, possible chondroplasty, possible synovectomy, and possible plica excision. Surgery is scheduled for 07/26/[address] Lebron discussed the risks and benefits of the surgery at today's visit and all his questions were answered. He will follow-up with Dr. Lebron two weeks after the surgery. ANDREA SMALL [id number]/[facility] #: [id number] MTDD
[~2019-07-26 05:33] MED LIST changes: -Dexamethasone TAB* 4 MG PO ONE; -DiMENhydriNATE IV* 50 MG/ML VIAL IV PUSH PRN; -Famotidine IV* 10 MG/ML 2 ML (20 mg) IV ONE; -Morphine VIAL* 4 MG/ML VIAL (1 ml vial) IV PRN; -Naloxone* 0.4 MG/ML 1 ML VIAL IV PRN; -Ondansetron TAB* 4 MG PO ONE; -PROCHLORPERAZINE INJ 5 MG/ML 2 ML VIAL IV PRN; -oxyCODONE/Acetamin 5/325 MG* TAB PO PRN
[2019-07-26] MEDS ORDERED: Lactated Ringers 1000 ML Bag* 1,000 ML IV SCH (06:00)
[2019-07-26] MEDS ORDERED: ceFAZolin 2 GM PREMIX in ORs 2 GM/50 ML BAG ONE (06:11)
[2019-07-26] MEDS ORDERED: EPINEPHRINE 1 MG/ML 1 ML VIAL ONE (07:06)
[2019-07-26] MEDS ORDERED: methylPREDNISolone ACETATE 80* 80 MG/ML 1 ML VIAL ONE (07:06)
[2019-07-26] MEDS ORDERED: ROPIVACAINE 5 MG/ML 30 ML BTL (0.5%) ONE (07:06)
[2019-07-26] MEDS ORDERED: Midazolam* 1 MG/ML 2 ML VIAL (2 MG) ONE (07:19)
[2019-07-26] MEDS ORDERED: fentaNYL* 50 MCG/ML 2 ML VIAL (100 MCG VIAL) ONE ×2 (07:19→08:57)
[2019-07-26] MEDS ORDERED: Lidocaine 2% PF * 5 ML VIAL ONE (07:20)
[2019-07-26] MEDS ORDERED: Propofol* 10 MG/ML 20 ML BTL ONE (07:20)
[2019-07-26] MEDS ORDERED: Ketorolac INJ* 30 MG/ML 1 ML VIAL ONE (07:41)
[2019-07-26] MEDS ORDERED: Metoclopramide IV* 5 MG/ML 2 ML VIAL ONE (07:41)
[2019-07-26] MEDS ORDERED: Ondansetron INJ* 2 MG/ML VIAL ONE (07:41)
[2019-07-26] MEDS ORDERED: Dexamethasone IV* 4 MG/ML 1 ML (4 MG) ONE (07:41)
[2019-07-26] MEDS ORDERED: EPHEDrine (Pressors)* 50 MG/ML VIAL ONE (07:45)
[2019-07-26] MEDS ORDERED: oxyCODONE TAB* 5 MG TAB PO PRN (07:59)
[2019-07-26] MEDS ORDERED: DiMENhydriNATE IV* 50 MG/ML VIAL IV PUSH PRN (07:59)
[2019-07-26] MEDS ORDERED: fentaNYL* 50 MCG/ML 2 ML VIAL (100 MCG VIAL) IV PRN (07:59)
[2019-07-26] MEDS ORDERED: Naloxone* 0.4 MG/ML 1 ML VIAL IV PRN (07:59)
[2019-07-26] MEDS ORDERED: Acetaminophen TAB* 325 MG PO PRN (07:59)
[2019-07-26] MEDS ORDERED: oxyCODONE TAB* 5 MG TAB ONE (08:57)
[2019-07-26 09:58] VITALS: BP 128/80
[2019-07-26] MEDS ORDERED: Propofol* 500 MG/50 ML BTL ONE (12:34)
--- NOTE | 2019-07-27 01:56 | OP ---
DATE OF OPERATION: 07/26/19 - [facility] DATE OF : 62 ATTENDING SURGEON: Radha Lebron MD BALING MACHINE OPERATOR: ANDREA Small. Ms. Rangel did help throughout the procedure with preparation of the leg, wound retraction, manipulation of the knee, and wound closure. ANESTHESIOLOGIST: Dr. Lema ANESTHESIA: General. PRE-OP DIAGNOSIS: Right knee medial meniscus tear. POST-OP DIAGNOSIS: Right knee medial meniscus tear. OPERATIVE PROCEDURE: Right knee arthroscopy with partial medial meniscectomy. COMPLICATIONS: None. ESTIMATED BLOOD LOSS: Less than 25 cc. BRIEF HISTORY/INDICATION: Mr. Vazquez is a 59-year-old gentleman with acute onset of mechanical symptoms consistent with medial meniscus tear. He failed conservative treatment and MRI confirmed a posterior medial meniscus tear. Due to continued pain and decreased quality of life, the patient elected to undergo right knee arthroscopy with partial meniscectomy. Informed consent was obtained from the patient. He understood the risks of surgery included, but were not limited to bleeding, infection, damage to nearby structures, continued pain, need for further surgery, re-tear of the meniscus, progression of arthritis, stroke, heart attack, blood clot, and anesthesia complications. He wished to proceed. INTRAOPERATIVE FINDINGS: Intraoperatively, the patient was noted to have minimal grade 2 or 3 Outerbridge cartilage changes in the patellofemoral and medial compartment. He had a radial type tear in the posterior horn of the medial meniscus. DESCRIPTION OF PROCEDURE: Mr. Vazquez was identified in the preanesthesia unit. His right lower extremity was marked as the correct operative site. The informed consent was signed and placed in the chart. The patient was taken to the operating room and placed under general anesthesia without difficulty. His right lower extremity was prepped and draped in the usual sterile fashion. Preop time-out was made to correctly identify the patient's side and site. Appropriate perioperative antibiotics were given within 1 hour of incision. A 1.5 cm anterolateral portal incision was made with a 10-blade and carried down through the capsule. A trocar was introduced. As soon as light and water sources were turned on, there was immediate visualization of the suprapatellar pouch. A tour of the knee joint was performed. Suprapatellar pouch had no obvious abnormalities. Patellofemoral compartment showed very minimal degenerative changes. Small area along the medial facets. Medial gutters showed no loose body or plica. Medial compartment showed minimal grade 2 and 3 Outerbridge cartilage changes along the medial and femoral condyle. A radial tear with anterior displacement was noted along the posterior medial meniscus. This was mainly in the white-red zone. ACL and PCL were intact. The knee was placed in a [id number]-[id number] position. There was no obvious lateral meniscal tear. No obvious degenerative change in the lateral compartment. Lateral gutter was without abnormality or loose body. Under direct visualization, a medial portal incision was made. A probe was introduced and a second tour of the knee joint was performed. There were no additional findings. The medial meniscus tear was a noted to be a radial tear involving the posterior most one-third of the medial meniscus along the white- red zone. This was displaced anteriorly. Straight biter and margarito were used to perform partial medial meniscectomy. The meniscal tear was carefully excised. A smooth border of the meniscus was obtained in the white-red zone. Radiofrequency ablation wand was then used to further smooth the edge of the meniscus. Further probing of the meniscus showed no additional tears. The knee was copiously irrigated with sterile saline. All instruments were removed. Incisions were closed using 3-0 nylon suture. Sterile Xeroform, 4x4s, and Webril were used to cover the incision. Yong wrap and cold pack were placed over this. The patient's anesthesia was reversed without difficulty. The patient was taken to the PACU in stable condition. Intended weightbearing will be weightbearing as tolerated. Intended DVT prophylaxis will be aspirin. He will follow up in 2 weeks' time for suture removal. [id number]/[facility] #: [id number] CANDIS
== END 2019-07-26 09:40 | disposition home or self-care (01) ==
LOC: OR 05:33
PROVIDERS: ATTEND Orthopaedic Surgery Adult Reconstructive Orthopaedic Surgery
DX: S83.241A Other tear of medial meniscus, current injury, right knee, initial encounter (principal); I10 Essential (primary) hypertension; E78.00 Pure hypercholesterolemia, unspecified; K21.9 Gastro-esophageal reflux disease without esophagitis; G47.33 Obstructive sleep apnea (adult) (pediatric); X58.XXXA Exposure to other specified factors, initial encounter; Y92.9 Unspecified place or not applicable
CPT/HCPCS: A9270-GY; J0690; J1040; J1100; J1885; J2250; J2405; J2704; J2765; J2795; J3010

== ENCOUNTER 2020-04-03 06:41 | Inpatient (IN) ==
[~2020-04-03 06:41] MED LIST changes: +Buffered Lidocaine 1% SYRIN 1 ml INTRADERM ONE; -Buffered Lidocaine 1% SYRIN* 1 ML/SYRINGE INTRADERM ONE; +Lactated Ringers 1000 ml BAG 1,000 ML IV SCH
[2020-04-03] MEDS ORDERED: ceFAZolin 2 GM PREMIX 2 GM/50 ML BAG ONE (06:58)
[2020-04-03] MEDS ORDERED: Lidocaine 2% PF 5 ML VIAL ONE (07:06)
[2020-04-03] MEDS ORDERED: fentaNYL 100 mcg/2 ml 50 MCG/ML VIAL ONE (07:06)
[2020-04-03] MEDS ORDERED: Dexmedetomidine 200 mcg/2 ml 2 ml VIAL (200 mcg) ONE (07:06)
[2020-04-03] MEDS ORDERED: Dexamethasone IV 4 MG/ML VIAL 1 ml VIAL ONE (07:06)
[2020-04-03] MEDS ORDERED: Midazolam 2 mg/2 ml VIAL 1 mg/ml 2 ml VIAL (2 mg) ONE (07:06)
[2020-04-03] MEDS ORDERED: ROPIVACAINE 5 MG/ML 30 ML BTL (0.5%) ONE (07:06)
[2020-04-03] MEDS ORDERED: Propofol 10 MG/ML 20 ML BTL ONE ×2 (10:02→11:46)
[2020-04-03] MEDS ORDERED: Acetaminophen IV 1 GM/100ML 100 ML ONE (10:21)
[2020-04-03] MEDS ORDERED: Naloxone 0.4 mg VIAL 0.4 mg/ml 1 ml VIAL IV PRN (10:57)
[2020-04-03] MEDS ORDERED: DiMENhydriNATE IV 50 mg/ml 1 ml VIAL IV PUSH PRN (10:57)
[2020-04-03] MEDS ORDERED: fentaNYL 100 mcg/2 ml 50 MCG/ML VIAL IV PRN (10:57)
[2020-04-03] MEDS ORDERED: EPHEDrine (Pressors) 50 MG/ML VIAL ONE (11:30)
[2020-04-03] MEDS ORDERED: Magnesium Hydroxide LIQ 30 ML UDC PO PRN (12:20)
[2020-04-03] MEDS ORDERED: Ondansetron 4 mg VIAL 2 MG/ML 2 ml VIAL IV PRN (12:20)
[2020-04-03] MEDS ORDERED: Ondansetron ODT 4 mg TAB 4 MG TAB PO PRN (12:20)
[2020-04-03] MEDS ORDERED: Morphine 2 MG/ML SYRINGE IV PRN (12:20)
[2020-04-03] MEDS ORDERED: diPHENhydraMINE IV 50 MG/ML 1 ml VIAL (BENADRYL) IV PRN (12:20)
[2020-04-03] MEDS ORDERED: oxyCODONE/Acetamin 5/325 mg TAB PO PRN ×2 (12:20)
[2020-04-03] MEDS ORDERED: diPHENhydraMINE 25 mg TAB PO PRN (12:20)
[2020-04-03] MEDS ORDERED: Lactulose 30 ml UDC PO PRN (12:20)
[2020-04-03] MEDS: Lactated Ringers 1000 ml BAG 1,000 ML IV SCH ×2 (13:34→23:45)
[2020-04-03] MEDS: ceFAZolin 1 GM ADVAN 1 GM in NS 0.9% 50 ML 50 ML IVPB SCH (17:26)
[2020-04-03] MEDS: Magnesium Hydroxide LIQ 30 ML UDC PO SCH (21:40)
[2020-04-04] MEDS: ceFAZolin 1 GM ADVAN 1 GM in NS 0.9% 50 ML 50 ML IVPB SCH ×2 (02:31→10:30)
[2020-04-04 07:14] LABS: Hematocrit 33 % (42-52); Hemoglobin 11.9 g/dL (14.0-18.0); Platelet Count 133 10^3/uL (150-450)
[2020-04-04 07:28] LABS: BUN/Creatinine Ratio 21.5 (8-20); Calcium 8.5 mg/dL (8.6-10.3); EGFR African American 121.5 (>60); EGFR Non-African American 100.4 (>60); Potassium 3.9 mmol/L (3.5-5.0)
[2020-04-04] MEDS: Magnesium Hydroxide LIQ 30 ML UDC PO SCH (08:15)
[2020-04-04 08:22] VITALS: BP 130/78
[2020-04-04] MEDS ORDERED: Aspirin EC 81 mg TAB.EC (enteric coated) PO SCH (09:00)
[2020-04-04] MEDS ORDERED: Coenzyme Q10 CAP (NF) ** 100 MG PO SCH (09:00)
[2020-04-04] MEDS ORDERED: Valsartan/HCTZ 320/12.5(NF) TAB PO SCH (09:00)
[2020-04-04] MEDS ORDERED: Vitamin THERAPEUTIC TAB PO SCH (09:00)
[2020-04-04] MEDS ORDERED: Cholecalciferol (VIT D3) 1,000 unit TAB PO SCH (09:00)
== END 2020-04-04 12:50 | disposition home health service (06) | DRG 301 ==
LOC: INTOOBSV 06:41 → AA 06:41 → SSU 13:37
PROVIDERS: ADMIT Orthopaedic Surgery Adult Reconstructive Orthopaedic Surgery; ATTEND Orthopaedic Surgery Adult Reconstructive Orthopaedic Surgery